=== PATIENT | female | born 1985 | race American Indian/Alaskan Native ===

== ENCOUNTER 2016-11-27 04:30 | Emergency (ER) | payer SELFPAY ==
[2016-11-27 06:09] VITALS: BP 142/95
--- NOTE | 2016-11-27 06:56 | XRay Report ---
FINAL REPORT PROCEDURE: XR KNEE 1-2V RT TECHNIQUE: RIGHT knee radiographs, AP and lateral views. CPT 90417 HISTORY: fall/injury R knee COMPARISON: No prior studies are available for comparison. FINDINGS: Fracture (s) and/or Dislocation(s): None . Alignment: Normal . Joint space(s): Normal . Soft tissues: Normal . Bone mineralization: Normal . Foreign bodies: None . IMPRESSION: Normal Examination.
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
[2016-11-27] MEDS ORDERED: MOTRIN PO ONE (07:35)
== END 2016-11-27 07:51 | disposition home or self-care (01) ==
LOC: ED 04:30
DX: S80.211A Abrasion, right knee, initial encounter (principal); J45.909 Unspecified asthma, uncomplicated; V49.59XA Passenger injured in collision with other motor vehicles in traffic accident, initial encounter; Y93.9 Activity, unspecified; Y92.89 Other specified places as the place of occurrence of the external cause; Y99.9 Unspecified external cause status
CPT/HCPCS: 99283

== ENCOUNTER 2017-04-22 11:00 | Outpatient (CLI) | payer MEDICAID | END 2017-04-22 11:01 | disposition home or self-care (01) | LOC: SLR 11:00 | PROVIDERS: ATTEND Family Medicine | DX: G47.30 Sleep apnea, unspecified (principal) | CPT/HCPCS: 95810 ==

== ENCOUNTER 2017-05-05 11:00 | Outpatient (CLI) | payer MEDICAID | END 2017-05-05 11:01 | disposition home or self-care (01) | LOC: SLR 11:00 | PROVIDERS: ATTEND Family Medicine | DX: G47.33 Obstructive sleep apnea (adult) (pediatric) (principal) | CPT/HCPCS: 95811 ==

== ENCOUNTER 2017-12-19 13:34 | Emergency (ER) | payer MEDICAID ==
[2017-12-19 14:11] LABS: Basophils % (Auto) 0.9 % (0.0-1.8); Eosinophils # (Auto) 0.1 K/mm3 (0.0-0.4); Eosinophils % (Auto) 1.2 % (0.0-4.3); Hematocrit 33.1 % (30.3-42.9); Hemoglobin 10.8 gm/dl (10.1-14.3); Lymphocytes # (Auto) 1.9 K/mm3 (1.2-5.4); Mean Corpuscular HGB Conc 33 % (30-34); Mean Corpuscular Volume 72 fl (79-97); Monocytes # (Auto) 0.3 K/mm3 (0.0-0.8); Monocytes % (Auto) 6.2 % (0.0-7.3); Platelet Count 280 K/mm3 (140-440); Red Blood Count 4.58 M/mm3 (3.65-5.03); Red Cell Distribution Width 18.6 % (13.2-15.2)
[2017-12-19 14:21] LABS: Mean Corpuscular Hemoglobin 24 pg (28-32)
--- NOTE | 2017-12-19 18:16 | Emergency Department Report ---
Blank Doc - Documentation Documentation: 32 year female with no significant past medical history came in complaining of vaginal bleeding for past 1 month on and off. Patient said this usually bleeds during her period but lately she has been bleeding more than her period. More than twice a month. Patient under no acute distress. She denies any nausea vomiting chest pain shortness of breath. Patient denies fever chills. She denies abdominal pain.
[2017-12-19 18:56] LABS: Alanine Aminotransferase 9 units/L (7-56); BUN/Creatinine Ratio 18; Blood Urea Nitrogen 9 mg/dL (7-17); Calcium 9.3 mg/dL (8.4-10.2); Hemolysis Index 3
--- NOTE | 2017-12-19 21:00 | Ultrasound Report ---
FINAL REPORT PROCEDURE: US TRANSVAGINAL TECHNIQUE: Real-time transvaginal sonography in multiple planes of the pelvis was performed with image documentation. This examination was performed without Doppler. Vascular abnormalities, including ovarian torsion, will not be detectable without Doppler evaluation. CPT 75638 HISTORY: bleed COMPARISON: No prior studies are available for comparison. FINDINGS: UTERUS Size: 10.5 x 4.7 x 5.1 cm. Endometrial thickness: mm. Orientation: anteverted. Cervix: Normal. Fibroids/masses: A 2 centimeter ill-defined isoechoic lesion is noted in the anterior upper body demonstrating hypervascularity.. RIGHT Ovary: 2.9 x 2.1 x 2.0 cm. Appearance: Normal. LEFT Ovary: 2.6 x 2.6 x 1.7 cm. Appearance: Normal. Pelvic fluid: None. Other: None. IMPRESSION: A small hypervascular mass measuring 2 centimeters in the anterior uterus most likely represents a fibroid. Otherwise unremarkable study.
--- NOTE | 2017-12-19 21:00 | Ultrasound Report ---
FINAL REPORT PROCEDURE: US PELVIC COMPLETE TECHNIQUE: Real-time transabdominal sonography in multiple planes of pelvis was performed with image documentation. This examination was performed without Doppler. Vascular abnormalities, including ovarian torsion, will not be detectable without Doppler evaluation. CPT 19941 HISTORY: vaginal bleeding COMPARISON: No prior studies are available for comparison. FINDINGS: UTERUS Size: 10.5 x 4.7 x 5.1 cm. Endometrial thickness: mm. Orientation: anteverted. Cervix: Normal. Fibroids/masses: A 2 centimeter ill-defined isoechoic lesion is noted in the anterior upper body demonstrating hypervascularity.. RIGHT Ovary: 2.9 x 2.1 x 2.0 cm. Appearance: Normal. LEFT Ovary: 2.6 x 2.6 x 1.7 cm. Appearance: Normal. Pelvic fluid: None. Other: None. IMPRESSION: A small hypervascular mass measuring 2 centimeters in the anterior uterus most likely represents a fibroid. Otherwise unremarkable study.
[2017-12-19 21:18] LABS: Bilirubin,Urine NEG (Negative); Blood,Urine LG (Negative); Color,Urine Red (Yellow); Mucus,Urine FEW /HPF
[2017-12-19 21:21] LABS: RBC,Urine > 182.0 /HPF (0.0-6.0)
[2017-12-19 21:22] LABS: HCG Qualitative,Urine Negative (Negative)
--- NOTE | 2017-12-19 21:56 | Emergency Department Report ---
ED Female HPI - General Chief complaint: Vaginal Bleeding Stated complaint: VAGINAL BLEEDING Time Seen by Provider: 12/19/17 18:08 Source: patient Mode of arrival: Ambulatory Limitations: No Limitations - History of Present Illness Initial comments: Pt screen by Dr. Lopez and orders place. 32 year female with no significant past medical history came in complaining of vaginal bleeding for past 1 month on and off. Patient said this usually bleeds during her period but lately she has been bleeding more than her period. More than twice a month. She reports cramping in her lower abdomen at 6/10, crampy pain. Intermittent and only occurs or bleeding. She is currently bleeding at present. Denies any history of known fibroids or ovarian disease. Denies taking control. Last menstrual period is 12/01/2017 and she says she started again. She denies any nausea vomiting chest pain shortness of breath. Patient denies fever chills. No alleviating or exacerbating factor per patient and no medication taken prior to coming to the emergency room. Patient does have a primary care doctor but she does not have [employer] at present. Patient was last seen in this emergency room on 11/27/2016 for knee pain. Denies any urinary burning, frequency or urgency. Denies any back pain. Denies any vaginal discharge. MD Complaint: vaginal bleeding Onset/Timin -: days(s) Location: suprapubic Radiation: non-radiating Severity: moderate Severity scale (0 -10): 6 Quality: cramping Consistency: intermittent Improves with: none Worsens with: none Are you Now?: No Last Menstrual Period: 12/16/17 (started) EDC: 09/22/18 Associated Symptoms: vaginal bleeding, abdominal pain. denies: vaginal discharge, nausea/vomiting, fever/chills, headaches, loss of appetite, dysuria, hematuria, rash, seizure, shortness of breath, syncope, weakness - Related Data Sexually active: Yes Previous Rx's Medication Instructions Recorded Last Taken Type Ibuprofen [Motrin] 800 mg PO Q8HR PRN #30 tablet 11/27/16 Unknown Rx Cephalexin [Keflex] 500 mg PO Q12HR 7 Days #14 cap 12/19/17 Unknown Rx Naproxen [Naprosyn TAB] 500 mg PO Q8H PRN #15 tablet 12/19/17 Unknown Rx Allergies Allergy/AdvReac Type Severity Reaction Status Date / Time No Known Allergies Allergy Verified 12/19/17 13:40 ED Review of Systems ROS: Stated complaint: VAGINAL BLEEDING Other details as noted in HPI Constitutional: denies: chills, fever Eyes: denies: eye pain, eye discharge, vision change ENT: denies: ear pain, throat pain Respiratory: denies: cough, shortness of breath, SOB with exertion, SOB at rest , stridor, wheezing Cardiovascular: denies: chest pain, palpitations, edema, syncope Gastrointestinal: abdominal pain. denies: nausea, vomiting, diarrhea, constipation, hematemesis, melena, hematochezia Genitourinary: abnormal menses. denies: urgency, dysuria, frequency, hematuria , discharge, dyspareunia Musculoskeletal: denies: back pain, joint swelling, arthralgia, myalgia Skin: denies: rash, lesions, pruritus Neurological: denies: headache, weakness, abnormal gait Hematological/Lymphatic: denies: easy bleeding, easy bruising ED Past Medical Hx - Past Medical History Previous Medical History?: Yes Hx Asthma: Yes Additional medical history: OBESITY, Right Knee Pain - Surgical History Past Surgical History?: Yes Additional Surgical History: C-sections X 6, Tubal Ligation - Family History Family history: hypertension - Social History Smoking Status: Never Smoker Substance Use Type: None Other Social History: Lives with her family - Medications Home Medications: Home Medications Medication Instructions Recorded Confirmed Last Taken Type Ibuprofen [Motrin] 800 mg PO Q8HR PRN #30 tablet 11/27/16 Unknown Rx Cephalexin [Keflex] 500 mg PO Q12HR 7 Days #14 cap 12/19/17 Unknown Rx Naproxen [Naprosyn TAB] 500 mg PO Q8H PRN #15 tablet 12/19/17 Unknown Rx ED Physical Exam - General Limitations: No Limitations General appearance: alert, in no apparent distress - Head Head exam: Present: atraumatic, normocephalic, normal inspection - Eye Eye exam: Present: normal appearance, PERRL, EOMI. Absent: scleral icterus, conjunctival injection Pupils: Present: normal accommodation - ENT ENT exam: Present: normal exam, normal orophraynx, mucous membranes moist - Neck Neck exam: Present: normal inspection, full ROM. Absent: tenderness, lymphadenopathy - Respiratory Respiratory exam: Present: normal lung sounds bilaterally. Absent: respiratory distress, chest wall tenderness - Cardiovascular Cardiovascular Exam: Present: regular rate, normal rhythm, normal heart sounds. Absent: systolic murmur, diastolic murmur - GI/Abdominal GI/Abdominal exam: Present: soft, tenderness (pelvic area, mid), normal bowel sounds. Absent: distended, guarding, rebound, rigid, organomegaly, mass, bruit , pulsatile mass, hernia - Extremities Exam Extremities exam: Present: normal inspection, full ROM, normal capillary refill , other (in, cyanosis or edema. Positive pulses all extremities and no neurovascular compromise). Absent: tenderness, pedal edema, joint swelling, calf tenderness - Back Exam Back exam: Present: normal inspection, full ROM, other (ambulates without any difficulties). Absent: tenderness, CVA tenderness (R), CVA tenderness (L), muscle spasm, paraspinal tenderness, vertebral tenderness, rash noted - Neurological Exam Neurological exam: Present: alert, oriented X3, normal gait - Psychiatric Psychiatric exam: Present: normal affect, normal mood - Skin Skin exam: Present: warm, dry, intact, normal color. Absent: rash ED Course Vital Signs 12/19/17 12/19/17 13:40 23:55 Temperature 98.5 F 98.5 F Pulse Rate 89 78 Respiratory 18 17 Rate Blood Pressure 149/80 Blood Pressure 152/91 [Right] O2 Sat by Pulse 96 100 Oximetry - Reevaluation(s) Reevaluation #1: 12/19/17 23:40 Patient given naproxen 500 mg by mouth in emergency room for pain with relief of pain ED Medical Decision Making - Lab Data Result diagrams: 12/19/17 14:01 12/19/17 18:13 Lab Results 12/19/17 12/19/17 12/19/17 Range/Units 14:01 14:01 14:01 WBC 4.6 (4.5-11.0) K/mm3 RBC 4.58 (3.65-5.03) M/mm3 Hgb 10.8 (10.1-14.3) gm/dl Hct 33.1 (30.3-42.9) % MCV 72 L (79-97) fl MCH 24 L (28-32) pg MCHC 33 (30-34) % RDW 18.6 H (13.2-15.2) % Plt Count 280 (140-440) K/mm3 Lymph % (Auto) 41.0 H (13.4-35.0) % [place] % (Auto) 6.2 (0.0-7.3) % Eos % (Auto) 1.2 (0.0-4.3) % Baso % (Auto) 0.9 (0.0-1.8) % Lymph # 1.9 (1.2-5.4) K/mm3 [place] # 0.3 (0.0-0.8) K/mm3 Eos # 0.1 (0.0-0.4) K/mm3 Baso # 0.0 (0.0-0.1) K/mm3 Seg Neutrophils % 50.7 (40.0-70.0) % Seg Neutrophils # 2.3 (1.8-7.7) K/mm3 Sodium (137-145) mmol/L Potassium (3.6-5.0) mmol/L Chloride (98-107) mmol/L Carbon Dioxide (22-30) mmol/L Anion Gap mmol/L BUN (7-17) mg/dL Creatinine (0.7-1.2) mg/dL Estimated GFR ml/min BUN/Creatinine Ratio % Glucose (65-100) mg/dL Calcium (8.4-10.2) mg/dL Total Bilirubin (0.1-1.2) mg/dL AST (5-40) units/L ALT (7-56) units/L Alkaline Phosphatase (35-129) units/L Total Protein (6.3-8.2) g/dL Albumin (3.9-5) g/dL Albumin/Globulin Ratio % HCG, Quant < 2 (0-4) mIU/mL Urine Color (Yellow) Urine Turbidity (Clear) Urine pH (5.0-7.0) Ur Specific [place] (1.003-1.030) Urine Protein (Negative) mg/dL Urine Glucose (UA) (Negative) mg/dL Urine Ketones (Negative) mg/dL Urine Blood (Negative) Urine Nitrite (Negative) Urine Bilirubin (Negative) Urine Urobilinogen (<2.0) mg/dL Ur Leukocyte Esterase (Negative) Urine WBC (Auto) (0.0-6.0) /HPF Urine RBC (Auto) (0.0-6.0) /HPF Urine Mucus /HPF Urine HCG, Qual (Negative) Blood Type A POSITIVE Antibody Screen Negative 12/19/17 12/19/17 Range/Units 18:13 Unknown WBC (4.5-11.0) K/mm3 RBC (3.65-5.03) M/mm3 Hgb (10.1-14.3) gm/dl Hct (30.3-42.9) % MCV (79-97) fl MCH (28-32) pg MCHC (30-34) % RDW (13.2-15.2) % Plt Count (140-440) K/mm3 Lymph % (Auto) (13.4-35.0) % [place] % (Auto) (0.0-7.3) % Eos % (Auto) (0.0-4.3) % Baso % (Auto) (0.0-1.8) % Lymph # (1.2-5.4) K/mm3 [place] # (0.0-0.8) K/mm3 Eos # (0.0-0.4) K/mm3 Baso # (0.0-0.1) K/mm3 Seg Neutrophils % (40.0-70.0) % Seg Neutrophils # (1.8-7.7) K/mm3 Sodium 138 (137-145) mmol/L Potassium 4.3 (3.6-5.0) mmol/L Chloride 100.6 (98-107) mmol/L Carbon Dioxide 20 L (22-30) mmol/L Anion Gap 22 mmol/L BUN 9 (7-17) mg/dL Creatinine 0.5 L (0.7-1.2) mg/dL Estimated GFR > 60 ml/min BUN/Creatinine Ratio 18 % Glucose 90 (65-100) mg/dL Calcium 9.3 (8.4-10.2) mg/dL Total Bilirubin 0.60 (0.1-1.2) mg/dL AST 14 (5-40) units/L ALT 9 (7-56) units/L Alkaline Phosphatase 78 (35-129) units/L Total Protein 7.5 (6.3-8.2) g/dL Albumin 4.0 (3.9-5) g/dL Albumin/Globulin Ratio 1.1 % HCG, Quant (0-4) mIU/mL Urine Color Red (Yellow) Urine Turbidity Cloudy (Clear) Urine pH 5.0 (5.0-7.0) Ur Specific [place] 1.029 (1.003-1.030) Urine Protein 100 mg/dl (Negative) mg/dL Urine Glucose (UA) Neg (Negative) mg/dL Urine Ketones Neg (Negative) mg/dL Urine Blood Lg (Negative) Urine Nitrite Neg (Negative) Urine Bilirubin Neg (Negative) Urine Urobilinogen 2.0 (<2.0) mg/dL Ur Leukocyte Esterase Tr (Negative) Urine WBC (Auto) 133.0 H (0.0-6.0) /HPF Urine RBC (Auto) > 182.0 (0.0-6.0) /HPF Urine Mucus Few /HPF Urine HCG, Qual Negative (Negative) Blood Type Antibody Screen Urine culture sent large amount of bleeding due to current vaginal bleeding. She is experiencing her menses for the second time this month. - Radiology Data Radiology results: report reviewed Transvaginal and transabdominal ultrasound reveals patient's with small hypervascular mass measuring 2 cm in the anterior uterus most likely represent a fibroid. Otherwise unremarkable ultrasound. Right and left ovary are normal. No pelvic fluid. Cervix is normal. Please refer to radiology report section for details on reports - Medical Decision Making ED course: Diagnosis 1: Abdominal pain-resolved. Given naproxen 500 mg in ED. Will be discharged home on anti-inflammatory 2-Dysfunctional uterine bleed: Referred to OBGYN. CBC stable 3: Urinary tract infection: UA with leukocyte Estrace, WBC. will be discharged home on Keflex. Urine culture collected and Pending results 4: Uterine Mass/Fibroids -referred to OBGYN. Pain management Transvaginal and transabdominal ultrasound reveals patient's with small hypervascular mass measuring 2 cm in the anterior uterus most likely represent a fibroid. Otherwise unremarkable ultrasound. Right and left ovary are normal. No pelvic fluid. Cervix is normal. Please refer to radiology report section for details on reports Labs reviewed to include cbc, cmp, HCG Quant, UA and HCG T&S- stable x uti. Educated on labs results, Ultrasound report, Diagnosis, Meds and follow up and she voiced understanding Vital signs are stable and she is afebrile prior to discharge. Multiple follow-up given for primary care, and [employer] doctor Mikey Lopes. Patient discharged home in stable condition from emergency room with prescription for Keflex and naproxen. - Differential Diagnosis dysfunctional uterine bleeding, threatened miscarriage, fibroids Critical care attestation.: If time is entered above; I have spent that time in minutes in the direct care of this critically ill patient, excluding procedure time. ED Disposition Clinical Impression: Uterine mass, Dysfunctional uterine bleeding, Vaginal bleeding Abdominal pain Qualifiers: Abdominal location: lower abdomen, unspecified Qualified Code(s): R10.30 - Lower abdominal pain, unspecified UTI (urinary tract infection) Qualifiers: Urinary tract infection type: site unspecified Hematuria presence: with hematuria Qualified Code(s): N39.0 - Urinary tract infection, site not specified Disposition: TO HOME OR SELFCARE Is pt being admited?: No Does the pt Need Aspirin: No Condition: Stable Instructions: Dysfunctional Uterine Bleeding (ED), Uterine Fibroids (ED), Urinary Tract Infection in Women (ED), Abdominal Pain (ED) Additional Instructions: Please follow up with Dr. Osmar Mcdonough at [facility]. Call and to schedule an appointment regarding ultrasound findings for uterine mass that is more than likely a fibroid. Take naproxen and this will help with pain. He have a urinary tract infection and please take Keflex which is an antibiotic. Increase your fluid intake and eat food that is Rich and iron. Prescriptions: Cephalexin [Keflex] 500 mg PO Q12HR 7 Days #14 cap Naproxen [Naprosyn TAB] 500 mg PO Q8H PRN #15 tablet PRN Reason: abdominal cramping Referrals: RAMON RODRIGUEZ MD [Primary Care Provider] - 12/22/17 KARLEY MCDONOUGH MD [Staff Physician] - 12/22/17 Forms: Work/School Release Form(ED)
[2017-12-19] MEDS ORDERED: NAPROSYN PO ONE (23:40)
[2017-12-20 00:08] VITALS: BP 152/91
== END 2017-12-19 23:55 | disposition home or self-care (01) ==
LOC: ED 13:34
DX: N85.9 Noninflammatory disorder of uterus, unspecified (principal); N93.8 Other specified abnormal uterine and vaginal bleeding; R10.30 Lower abdominal pain, unspecified; N39.0 Urinary tract infection, site not specified; D25.9 Leiomyoma of uterus, unspecified; E66.9 Obesity, unspecified; Z98.51 Tubal ligation status
CPT/HCPCS: 36415; 76830; 76856; 80053; 81001; 81025; 84702; 85025; 86850; 86900; 86901; 87086

== ENCOUNTER 2019-02-21 11:14 | Emergency (ER) | payer MEDICAID ==
--- NOTE | 2019-02-21 11:28 | Emergency Department Report ---
Blank Doc - Documentation Documentation: This is a 33-year-old female that presents with chest pain, SOB, and heart pal pation feeling. Stated has some blurry vision. This initial assessment/diagnostic orders/clinical plan/treatment(s) is/are subject to change based on patient's health status, clinical progression and re- assessment by fellow clinical providers in the ED. Further treatment and workup at subsequent clinical providers discretion. Patient/guardians urged not to elope from the ED as their condition may be serious if not clinically assessed and managed. Initial orders include: 1- Patient sent to [facility] for further evaluation and treatment 2- EKG 3- CXR 4- labs
[2019-02-21 11:29] VITALS: BP 144/93
[2019-02-21 12:16] LABS: Basophils % (Auto) 0.6 % (0.0-1.8); Eosinophils % (Auto) 0.7 % (0.0-4.3); Hemoglobin 12.2 gm/dl (10.1-14.3); Lymphocytes # (Auto) 1.3 K/mm3 (1.2-5.4); Lymphocytes % (Auto) 43.5 % (13.4-35.0); Mean Corpuscular HGB Conc 32 % (30-34); Mean Corpuscular Volume 83 fl (79-97); Monocytes # (Auto) 0.2 K/mm3 (0.0-0.8); Monocytes % (Auto) 7.3 % (0.0-7.3); Platelet Count 217 K/mm3 (140-440); Red Blood Count 4.61 M/mm3 (3.65-5.03); Red Cell Distribution Width 17.6 % (13.2-15.2)
[2019-02-21] MEDS ORDERED: ULTRAM PO ONE (12:24)
[2019-02-21 12:25] LABS: INR 1.21 (0.87-1.13); Partial Thromboplastin Time 28.9 Sec. (24.2-36.6)
--- NOTE | 2019-02-21 12:31 | Emergency Department Report ---
ED General Adult HPI - General Chief complaint: Chest Pain Stated complaint: BODY PAIN/BLUR VISION Time Seen by Provider: 02/21/19 11:26 Source: patient Mode of arrival: Ambulatory Limitations: No Limitations - History of Present Illness Initial comments: Ms. Herrera is a very pleasant 33-year-old female with history of hypertension depression anxiety severe obesity right knee pain sleep apnea. Her PCP is Dr. Dee Tuttle For the past hour she's had facial headache lightheadedness and nasal congestion. She has palpitations. No changes in her blood pressure medications. She does take a water pill. Denies fever. -: Gradual, hour(s) (1) Location: head, chest Quality: dull Consistency: constant Improves with: none Worsens with: none Associated Symptoms: other (palpitations and lightheadedness) - Related Data Previous Rx's Medication Instructions Recorded Last Taken Type Fluticasone [Flonase] 1 spray NS QDAY 14 Days #1 bottle 02/21/19 Unknown Rx Loratadine 10 mg PO DAILY 14 Days #14 tablet 02/21/19 Unknown Rx Allergies Allergy/AdvReac Type Severity Reaction Status Date / Time amoxicillin Allergy Swelling Verified 02/21/19 11:17 ED Review of Systems ROS: Stated complaint: BODY PAIN/BLUR VISION Other details as noted in HPI Comment: All other systems reviewed and negative Constitutional: malaise ENT: congestion Cardiovascular: palpitations. denies: chest pain ED Past Medical Hx - Past Medical History Hx Hypertension: Yes (anxiety, depression) Hx Asthma: Yes Additional medical history: OBESITY, Right Knee Pain, Sleep apnea, obese - Surgical History Additional Surgical History: C-sections X 6, Tubal Ligation, anemia - Social History Smoking Status: Never Smoker Substance Use Type: None - Medications Home Medications: Home Medications Medication Instructions Recorded Confirmed Last Taken Type Fluticasone [Flonase] 1 spray NS QDAY 14 Days #1 bottle 02/21/19 Unknown Rx Loratadine 10 mg PO DAILY 14 Days #14 tablet 02/21/19 Unknown Rx ED Physical Exam - General Limitations: No Limitations General appearance: alert, in no apparent distress - Head Head exam: Present: atraumatic, normocephalic - Eye Eye exam: Present: normal appearance - ENT ENT exam: Present: mucous membranes moist - Neck Neck exam: Present: normal inspection, full ROM - Respiratory Respiratory exam: Present: normal lung sounds bilaterally. Absent: respiratory distress, wheezes, rales, rhonchi - Cardiovascular Cardiovascular Exam: Present: regular rate, normal rhythm, normal heart sounds. Absent: systolic murmur, diastolic murmur, rubs, gallop - GI/Abdominal GI/Abdominal exam: Present: soft, normal bowel sounds. Absent: distended, tenderness, guarding, rebound - Extremities Exam Extremities exam: Present: normal inspection - Back Exam Back exam: Present: normal inspection - Neurological Exam Neurological exam: Present: alert, oriented X3 - Psychiatric Psychiatric exam: Present: normal affect, normal mood - Skin Skin exam: Present: warm, dry, intact, normal color. Absent: rash ED Course Vital Signs 02/21/19 11:23 Temperature 98.4 F Pulse Rate 87 Respiratory 20 Rate Blood Pressure 144/93 O2 Sat by Pulse 97 Oximetry ED Medical Decision Making - Lab Data Result diagrams: 02/21/19 11:49 02/21/19 11:49 - EKG Data 02/21/19 12:21 EKG obtained 1123 Normal sinus rhythm rate 80 beats minute normal axis normal intervals no significant ST elevation nonspecific T wave pattern anterior leads. - Radiology Data Radiology results: report reviewed Chest x-ray according to radiology report showed mild cardiomegaly and signs of pulmonary venous hypertension - Medical Decision Making 1. Sinus headache: Recommended Flonase and loratadine which I prescribed 2. Palpitations no evidence of arrhythmia. Possible PVCs.. 3. After attempting to treat the patient's discomfort with analgesia in the ED, patient politely declined the medication. She told the nurse that she is experiencing anxiety. She was recently diagnosed with anxiety. Her PCP has called in prescription to address the anxiety. The medication is currently waiting for her at the pharmacy. 4. Ms. Herrera speaks of dyspnea at rest. I do not suspect PE clinically during this presentation. Normal heart rate. No respiratory rate. Upon review of chest x-ray she does have cardiomegaly and pulmonary venous congestion due to severe obesity and sleep apnea she is at risk for cor pulmonale I strongly suggested evaluation by her PCP. I referred her to shoe stitcher on-call. She stated that her sleep apnea is severe however she has not been approved to have CPAP machine after her second sleep study. Critical care attestation.: If time is entered above; I have spent that time in minutes in the direct care of this critically ill patient, excluding procedure time. ED Disposition Clinical Impression: Sinus headache, Palpitations, Anxiety Disposition: DC-01 TO HOME OR SELFCARE Is pt being admited?: No Does the pt Need Aspirin: No Condition: Stable Instructions: Palpitations (ED), Acute Headache (ED) Prescriptions: Fluticasone [Flonase] 1 spray NS QDAY 14 Days #1 bottle Loratadine 10 mg PO DAILY 14 Days #14 tablet
[2019-02-21 12:40] LABS: BUN/Creatinine Ratio 14; Blood Urea Nitrogen 7 mg/dL (7-17); Calcium 9.4 mg/dL (8.4-10.2); Hemolysis Index 6
--- NOTE | 2019-02-21 13:18 | XRay Report ---
CHEST 2 VIEWS INDICATION: palpitations. COMPARISON: None. FINDINGS: Support devices: None. Heart: Mildly enlarged. Pulmonary vasculature: Redistribution of blood flow to the upper lobes. Lungs/pleura: No acute air space or interstitial disease. No pneumothorax. Additional findings: None. IMPRESSION: Mild cardiomegaly and pulmonary venous hypertension. No pulmonary edema. Signer Name: Beau Barrios MD Signed: 02/21/2019 1:14 PM Workstation Name: [id number]
== END 2019-02-21 13:55 | disposition home or self-care (01) ==
LOC: ED 11:14
DX: R51 Headache (principal); F41.9 Anxiety disorder, unspecified; F32.9 Major depressive disorder, single episode, unspecified; I10 Essential (primary) hypertension; J45.909 Unspecified asthma, uncomplicated; Z98.51 Tubal ligation status; Z98.890 Other specified postprocedural states; Z79.899 Other long term (current) drug therapy; Z88.1 Allergy status to other antibiotic agents
CPT/HCPCS: 36415; 71046; 80048; 84484; 84703; 85025; 85610; 85730; 93005; 93010; 99284

== ENCOUNTER 2019-03-11 13:49 | Emergency (ER) | payer MEDICAID ==
--- NOTE | 2019-03-11 14:13 | Event Note ---
ED Screening Note ED Screening Note: co pain at back of head and swelling of ble and cp that comes and goes no trauma pos nausea no sob 12 lead no focal def pmh htn anxiety psh csec x 6 february 19 LMP rx ativan clonidine pcp Dee Conklin no c/e/drugs nothing taken at home mom dec chf/hd/ dm This initial assessment/diagnostic orders/clinical plan/treatment(s) is/are subject to change based on patients health status, clinical progression and re- assessment by fellow clinical providers in the ED. Further treatment and workup at subsequent clinical providers discretion. Patient/guardian urged not to elope from the ED as their condition may be serious if not clinically assessed and managed. Initial orders include: basic labs 12 lead ua
[2019-03-11 14:59] LABS: Hematocrit 37.2 % (30.3-42.9); Hemoglobin 12.4 gm/dl (10.1-14.3); Mean Corpuscular HGB Conc 33 % (30-34); Mean Corpuscular Volume 82 fl (79-97); Platelet Count 247 K/mm3 (140-440); Red Blood Count 4.56 M/mm3 (3.65-5.03); Red Cell Distribution Width 18.2 % (13.2-15.2)
[2019-03-11 16:04] LABS: BUN/Creatinine Ratio 14; Blood Urea Nitrogen 7 mg/dL (7-17)
[2019-03-11 16:05] LABS: Calcium 9.4 mg/dL (8.4-10.2); Hemolysis Index 12
[2019-03-11] MEDS ORDERED: NORCO 5/325 PO ONE (16:24)
--- NOTE | 2019-03-11 16:45 | Emergency Department Report ---
HPI - General Chief Complaint: Chest Pain Time Seen by Provider: 03/11/19 14:08 - HPI HPI: 33-year-old female presents to the emergency department with the complaint of a headache to the top of the head as well as the neck and upper back that has been going on for the past couple of days. She denies any vision changes, slurred speech or any neurological deficits. She has not taken anything for her symptoms prior to arrival today. The patient also complains of some recent left-sided chest pain. However this is an acute on chronic problem for her. She was here for the same complaint 2 weeks ago at this facility. The patient also said that she had a negative stress test done last month through her visitor services specialist, was name she cannot currently remember but says it is unpleasant drive. She denies any shortness of breath, fever, nausea, vomiting or diaphoresis. She denies any tobacco or illicit drug use. She has a past history of hypertension, anemia, asthma, anxiety and sleep apnea. No recent travel or sick contacts at home. ED Past Medical Hx - Past Medical History Hx Hypertension: Yes (anxiety, depression) Hx Asthma: Yes Additional medical history: OBESITY, Right Knee Pain, Sleep apnea, obese - Surgical History Additional Surgical History: C-sections X 6, Tubal Ligation, anemia - Social History Smoking Status: Never Smoker Substance Use Type: None - Medications Home Medications: Home Medications Medication Instructions Recorded Confirmed Last Taken Type Fluticasone [Flonase] 1 spray NS QDAY 14 Days #1 bottle 02/21/19 Unknown Rx Ibuprofen [Motrin] 800 mg PO Q8HR PRN #30 tablet 02/21/19 Unknown Rx Loratadine 10 mg PO DAILY 14 Days #14 tablet 02/21/19 Unknown Rx ED Review of Systems ROS: Stated complaint: HEADACHE/RT/LFT FOOT SWELLING Other details as noted in HPI Comment: All other systems reviewed and negative Constitutional: denies: chills, fever Eyes: denies: eye pain, vision change ENT: denies: ear pain, throat pain Respiratory: denies: cough, shortness of breath Cardiovascular: chest pain. denies: palpitations Gastrointestinal: denies: nausea, vomiting Genitourinary: denies: dysuria, discharge Musculoskeletal: back pain, myalgia. denies: joint swelling Skin: denies: rash, lesions Neurological: headache. denies: numbness, paresthesias Physical Exam - Physical Exam Vital Signs: Vital Signs 03/11/19 14:06 Temperature 98.5 F Pulse Rate 85 Respiratory 18 Rate Blood Pressure 131/77 [Right] O2 Sat by Pulse 100 Oximetry Physical Exam: GENERAL: The patient is well-developed well-nourished. HENT: Normocephalic. Atraumatic. Patient has moist mucous membranes. EYES: Extraocular motions are intact. Pupils equal reactive to light bilaterally. No nystagmus. NECK: Supple. Trachea is midline. CHEST/LUNGS: Clear to auscultation. There is no respiratory distress noted. HEART/CARDIOVASCULAR: Regular. There is no tachycardia. There is no murmur. ABDOMEN: Abdomen is soft, nontender. Patient has normal bowel sounds. There is no abdominal distention. SKIN: Skin is warm and dry. NEURO: The patient is awake, alert, and oriented. The patient is cooperative. The patient has no focal neurologic deficits. The patient has normal speech. Cranial nerves II through XII grossly intact. No pronator drift. MUSCULOSKELETAL: There is no tenderness or deformity. There is no limitation range of motion. There is no evidence of acute injury. ED Course Vital Signs 03/11/19 14:06 Temperature 98.5 F Pulse Rate 85 Respiratory 18 Rate Blood Pressure 131/77 [Right] O2 Sat by Pulse 100 Oximetry ED Medical Decision Making - Lab Data Result diagrams: 03/11/19 14:35 03/11/19 14:35 - EKG Data -: EKG Interpreted by Me EKG shows normal: sinus rhythm, axis, intervals, QRS complexes, ST-T waves Rate: normal - EKG Data When compared to previous EKG there are: no significant change Interpretation: normal EKG, unchanged when compared t (02/21/19) - Radiology Data Radiology results: report reviewed, image reviewed interpreted by me: Chest x-ray does not show any acute process. There are no pleural effusions, obvious pneumonia and there is no pneumothorax. CT head/brain wo con INDICATION / CLINICAL INFORMATION: 33 years Female; Headache. TECHNIQUE: Routine CT head without contrast. All CT scans at this location are performed using CT dose reduction for ALARA by means of automated exposure control. COMPARISON: None. FINDINGS: BRAIN / INTRACRANIAL CONTENTS: No acute hemorrhage, mass effect, midline shift, hydrocephalus, or acute, large territorial infarct. No chronic infarct or focal atrophy. Normal brain volume and ventricular/sulcal size for age. No significant white matter abnormality. CRANIOCERVICAL JUNCTION: No significant abnormality. ORBITS: No significant abnormality of visualized orbits. SINUSES / MASTOIDS: No significant abnormality of the visualized paranasal sinuses or mastoid air cells. ADDITIONAL FINDINGS: Prominent soft tissues seen in the roof the nasopharynx, presumably representing reactive adenoidal tissue IMPRESSION: 1. No focal mass, hemorrhage, hydrocephalus, or acute, large territorial infarct. - Medical Decision Making This patient presents to the emergency department with complaint of a headache that she also feels down towards the neck and shoulder/upper back. She does not appear to have any focal, motor or sensory deficits in her cranial nerves are intact. She does have some taut musculature around the neck and trapezius muscle and her headache may be secondary to a tension headache. She had a CT scan of the head without contrast that did not show any bleed, shift, mass, ischemia, or any other acute process. The patient did not complain of any chest pain to me but did say something in triage. It sounds like this is a inter mittent or acute on chronic issue for her as she was seen for the chest pain 2 weeks ago here at this facility and also says that she had a negative stress test through her visitor services specialist about one month ago. Her EKG does not show any signs of ST elevation [place] or dysrhythmia and is unchanged from previous. Her labs have been unremarkable including negative troponin and low BNP level. She is low on the heart score criteria. She is low on the well's score and is PERC negative. The patient was given a dose of pain medication and upon reevaluation she is feeling improved. She has good follow-up with primary care and cardiology. She appears safe for discharge home at this time. Vital signs s table throughout her ED course. She will return to the ER with any worsening of her symptoms or any acute distress. - Differential Diagnosis tension headache, migraine, subarachnoid, [place], costochondritis Critical Care Time: No Critical care attestation.: If time is entered above; I have spent that time in minutes in the direct care of this critically ill patient, excluding procedure time. ED Disposition Clinical Impression: Intermittent chest pain Headache Qualifiers: Headache type: tension-type Headache chronicity pattern: unspecified pattern Intractability: not intractable Qualified Code(s): G44.209 - Tension-type headache, unspecified, not intractable Disposition: DC-01 TO HOME OR SELFCARE Is pt being admited?: No Condition: Stable Instructions: Chest Pain (ED) Additional Instructions: Please follow-up with your primary care physician in the next few days. Please follow-up with your visitor services specialist. Return to the emergency Department with any worsening of your symptoms or any acute distress. Referrals: Guidance Secretary, Your [Other] - 2-3 Days AMY NAJERA MD [Staff Physician] - 2-3 Days Heart Score - HEART Score History: Slightly suspicious EKG: Normal Age: < 45 Risk factors: 1-2 risk factors Troponin: < normal limit HEART Score: 1 - Critical Actions Critical Actions: 0-3 pts:0.9-1.7%risk of adverse cardiac event.Candidate for discharge
[2019-03-11 17:32] LABS: Bacteria,Urine 1+ /HPF (Negative); Bilirubin,Urine NEG (Negative); Blood,Urine NEG (Negative); Color,Urine Yellow (Yellow); Mucus,Urine 2+ /HPF; Protein,Urine <15 mg/dL mg/dL (Negative)
[2019-03-11 17:34] LABS: HCG Qualitative,Urine Negative (Negative)
--- NOTE | 2019-03-11 18:28 | Cat Scan Report ---
CT head/brain wo con INDICATION / CLINICAL INFORMATION: 33 years Female; Headache. TECHNIQUE: Routine CT head without contrast. All CT scans at this location are performed using CT dos e reduction for ALARA by means of automated exposure control. COMPARISON: None. FINDINGS: BRAIN / INTRACRANIAL CONTENTS: No acute hemorrhage, mass effect, midline shift, hydrocephalus, or acu te, large territorial infarct. No chronic infarct or focal atrophy. Normal brain volume and ventricul ar/sulcal size for age. No significant white matter abnormality. CRANIOCERVICAL JUNCTION: No significant abnormality. ORBITS: No significant abnormality of visualized orbits. SINUSES / MASTOIDS: No significant abnormality of the visualized paranasal sinuses or mastoid air melina ls. ADDITIONAL FINDINGS: Prominent soft tissues seen in the roof the nasopharynx, presumably representing reactive adenoidal tissue IMPRESSION: 1. No focal mass, hemorrhage, hydrocephalus, or acute, large territorial infarct. Signer Name: Reno Chan MD, III Signed: 03/11/2019 6:24 PM Workstation Name: [id number]
--- NOTE | 2019-03-11 18:45 | XRay Report ---
CHEST 2 VIEWS INDICATION / CLINICAL INFORMATION: Chest pain.. COMPARISON: 02/21/2019. FINDINGS: SUPPORT DEVICES: None. HEART / MEDIASTINUM: There is mild cardiomegaly. Pulmonary vasculature is normal. The aorta is normal in caliber. LUNGS / PLEURA: No significant pulmonary or pleural abnormality. No pneumothorax. ADDITIONAL FINDINGS: No significant additional findings. IMPRESSION: Mild cardiomegaly without acute abnormality or other change since 02/21/2019. Signer Name: Eduar Blackburn MD Signed: 03/11/2019 6:40 PM Workstation Name: [id number]
[2019-03-11] MEDS ORDERED: TORADOL IM ONE (18:47)
[2019-03-11 19:50] VITALS: BP 140/65
== END 2019-03-11 20:30 | disposition home or self-care (01) ==
LOC: ED 13:49
DX: R51 Headache (principal); R07.89 Other chest pain; M54.89 Other dorsalgia; M54.2 Cervicalgia; I10 Essential (primary) hypertension; F41.9 Anxiety disorder, unspecified; Z86.2 Personal history of diseases of the blood and blood-forming organs and certain disorders involving the immune mechanism; Z79.899 Other long term (current) drug therapy; Z88.1 Allergy status to other antibiotic agents
CPT/HCPCS: 36415; 70450; 71046; 80048; 81001; 81025; 83880; 84484; 84703; 85027; 93005; 93010; 96372; 99284; J1885

== ENCOUNTER 2019-05-11 19:42 | Emergency (ER) | payer MEDICAID ==
--- NOTE | 2019-05-11 19:56 | Emergency Department Report ---
Blank Doc - Documentation Documentation: 33-year-old female that presents with SOB and nasal congestion. Denies any ch est pain. This initial assessment/diagnostic orders/clinical plan/treatment(s) is/are subject to change based on patient's health status, clinical progression and re- assessment by fellow clinical providers in the ED. Further treatment and workup at subsequent clinical providers discretion. Patient/guardians urged not to elope from the ED as their condition may be serious if not clinically assessed and managed. Initial orders include: 1- Patient sent to [facility] for further evaluation and treatment 2- CXR
--- NOTE | 2019-05-11 20:52 | XRay Report ---
CHEST PA AND LATERAL VIEWS INDICATION: sob. COMPARISON: 03/11/2019. FINDINGS: Support devices: None. Heart: Within normal limits. Lungs/Pleura: No acute pulmonary or pleural findings. IMPRESSION: 1. No significant abnormality. Signer Name: Yves Woodard MD Signed: 05/11/2019 8:48 PM Workstation Name: [id number]
[2019-05-11] MEDS ORDERED: IBUPROFEN PO ONE (22:47)
[2019-05-11] MEDS ORDERED: PEPCID PO ONE (22:47)
--- NOTE | 2019-05-11 22:48 | Emergency Department Report ---
ED General Adult HPI - General Chief complaint: Dyspnea/Respdistress Stated complaint: MARGARITA Time Seen by Provider: 05/11/19 19:54 Source: patient, RN notes reviewed Mode of arrival: Ambulatory Limitations: No Limitations - History of Present Illness Initial comments: During the history and physical, I am chaperoned by nurse JEANCARLOS LUCAS This is a 33-year-old female. Patient is not known to this provider previously. The patient states that she does not have a primary care doctor. The patient states that she is not . The patient states she does not take oral contraceptives. The patient states she is not taken aspirin recently. The patient states no DVT or pulmonary embolism risk factors. The patient states that she does not smoke, and that she is not exposed to electronic or artificial inhalants. The patient presents to the ER with a primary complaint of nasal congestion, and postnasal congestion and drip. This is causing her to have shortness of breath. It is not intrinsically painful. It has been going on for a few days. It is intermittent does not radiate anywhere, and she reports no exacerbating or relieving factors. She is concerned that she may have reflux. On secondary review of systems, she endorses intermittent central and left-sided chest wall pain for weeks and months. There is no vomiting, diaphoresis, exertional shortness of breath. The chest wall pain is aching, throbbing, increases with palpation and decreases with rest. She makes no complaint of additional symptoms. -: Gradual Location: face (nose), mouth, chest Quality: other Consistency: other Improves with: other Worsens with: other - Related Data Previous Rx's Medication Instructions Recorded Last Taken Type Fluticasone [Flonase] 1 spray NS QDAY 14 Days #1 bottle 02/21/19 Unknown Rx Ibuprofen [Motrin] 800 mg PO Q8HR PRN #30 tablet 02/21/19 Unknown Rx Loratadine 10 mg PO DAILY 14 Days #14 tablet 02/21/19 Unknown Rx Acetaminophen [Non-Aspirin Extra 500 mg PO Q6HR PRN #30 tablet 05/11/19 Unknown Rx Strength] Famotidine [Pepcid] 20 mg PO BID #60 tablet 05/11/19 Unknown Rx Fluticasone [Flonase] 1 spray NS QDAY #1 bottle 05/11/19 Unknown Rx Allergies Allergy/AdvReac Type Severity Reaction Status Date / Time amoxicillin Allergy Swelling Verified 03/11/19 14:09 ibuprofen Allergy Itching Verified 05/11/19 23:03 ED Review of Systems ROS: Stated complaint: MARGARITA Other details as noted in HPI Constitutional: denies: fever Eyes: denies: eye discharge ENT: congestion. denies: ear pain, dental pain Respiratory: denies: wheezing Cardiovascular: denies: syncope Gastrointestinal: denies: vomiting Musculoskeletal: denies: back pain Neurological: denies: weakness Hematological/Lymphatic: denies: easy bleeding ED Past Medical Hx - Past Medical History Previous Medical History?: Yes Hx Hypertension: Yes (anxiety) Hx Psychiatric Treatment: Yes (Anxiety,depression) Hx Asthma: Yes Additional medical history: OBESITY, Right Knee Pain, Sleep apnea, obese - Surgical History Past Surgical History?: Yes Additional Surgical History: C-sections X 6, Tubal Ligation, anemia - Social History Smoking Status: Never Smoker Substance Use Type: None - Medications Home Medications: Home Medications Medication Instructions Recorded Confirmed Last Taken Type Fluticasone [Flonase] 1 spray NS QDAY 14 Days #1 bottle 02/21/19 Unknown Rx Ibuprofen [Motrin] 800 mg PO Q8HR PRN #30 tablet 02/21/19 Unknown Rx Loratadine 10 mg PO DAILY 14 Days #14 tablet 02/21/19 Unknown Rx Acetaminophen [Non-Aspirin Extra 500 mg PO Q6HR PRN #30 tablet 05/11/19 Unknown Rx Strength] Famotidine [Pepcid] 20 mg PO BID #60 tablet 05/11/19 Unknown Rx Fluticasone [Flonase] 1 spray NS QDAY #1 bottle 05/11/19 Unknown Rx ED Physical Exam - General Limitations: No Limitations General appearance: alert, in no apparent distress - Head Head exam: Present: atraumatic, normocephalic - Eye Eye exam: Present: normal appearance, EOMI. Absent: nystagmus - ENT ENT exam: Present: normal exam, normal orophraynx, mucous membranes moist, normal external ear exam, other (nasal congestion is noted. There is no sinus tenderness.) - Neck Neck exam: Present: normal inspection, full ROM. Absent: tenderness, meningis mus - Respiratory Respiratory exam: Present: normal lung sounds bilaterally, chest wall tenderness (chaperoned by JEANCARLOS Montelongo). Absent: respiratory distress, wheezes, rales, rhonchi, stridor - Cardiovascular Cardiovascular Exam: Present: regular rate, normal rhythm, normal heart sounds. Absent: bradycardia, tachycardia, irregular rhythm, systolic murmur, diastolic murmur, rubs, gallop - GI/Abdominal GI/Abdominal exam: Present: soft. Absent: distended, tenderness, guarding, rebound, rigid, pulsatile mass - Extremities Exam Extremities exam: Present: normal inspection, full ROM, other (2+ pulses noted in the bilateral upper, lower extremities. There is no long bone tenderness. Musculoskeletal compartments are soft. The pelvis is stable.). Absent: pedal edema, calf tenderness - Back Exam Back exam: Present: normal inspection, full ROM. Absent: tenderness, CVA tenderness (R), CVA tenderness (L), paraspinal tenderness, vertebral tenderness - Neurological Exam Neurological exam: Present: alert, other (there is no facial droop. The tongue is midline. Extraocular movements are intact bilaterally. Patient speaking in full complete sentences. Shoulder shrug is intact bilaterally. Hearing is grossly intact bilaterally. Visual acuity intact to finger counting and color perception at a close distance. 5/5 strength 4 extremities. Sensation intact to light touch in 4 extremities.) - Psychiatric Psychiatric exam: Present: normal affect, normal mood - Skin Skin exam: Present: warm, dry, intact, normal color. Absent: rash ED Course Vital Signs 05/11/19 05/11/19 05/11/19 19:48 19:55 22:47 Temperature 98.2 F 98.3 F 98.2 F Pulse Rate 90 86 Respiratory 18 16 Rate Blood Pressure 134/86 Blood Pressure 139/77 [Left] O2 Sat by Pulse 100 99 Oximetry 05/11/19 23:08 Temperature Pulse Rate Respiratory 16 Rate Blood Pressure Blood Pressure [Left] O2 Sat by Pulse Oximetry ED Medical Decision Making - Lab Data Vital Signs 05/11/19 05/11/19 05/11/19 19:48 19:55 22:47 Temperature 98.2 F 98.3 F 98.2 F Pulse Rate 90 86 Respiratory 18 16 Rate Blood Pressure 134/86 Blood Pressure 139/77 [Left] O2 Sat by Pulse 100 99 Oximetry 05/11/19 23:08 Temperature Pulse Rate Respiratory 16 Rate Blood Pressure Blood Pressure [Left] O2 Sat by Pulse Oximetry - EKG Data -: EKG Interpreted by Ca EKG shows normal: sinus rhythm, axis, intervals, QRS complexes, ST-T waves (there is a biphasic T-wave in V2, this is suggestive of persistent juvenile T- wave inversion) Rate: normal - EKG Data When compared to previous EKG there are: previous EKG unavailable - Radiology Data Radiology results: report reviewed, image reviewed X-ray the chest is negative for acute disease - Medical Decision Making Differential diagnosis, including not limited to: Nasal congestion, allergies, reflux, postnasal drip, costochondritis, pneumonia Assessment and plan: 33-year-old female with nasal congestion, postnasal drip, chest wall pain. She is afebrile with reassuring vital signs. She has reproducible chest wall pain. She appears quite comfortable. She is reportedly allergic and intolerant of ibuprofen and NSAIDs. No pulmonary embolism or DVT risk factors, low risk by well's criteria, perc negative Patient does not appear to have an emergent medical condition at this time. We treated her symptoms. We discussed diet and lifestyle modifications. Critical care attestation.: If time is entered above; I have spent that time in minutes in the direct care of this critically ill patient, excluding procedure time. ED Disposition Clinical Impression: Chest wall pain, Nasal congestion Disposition: DC-01 TO HOME OR SELFCARE Is pt being admited?: No Does the pt Need Aspirin: No Condition: Stable Instructions: Chest Pain (ED) Additional Instructions: Take the medications as needed and directed. Patient may use home vaporizer and/or humidifier, and may use [id number] saline nasal sprays as often as needed for symptom control. Rest, avoid heavy lifting and strenuous physical activities. Avoid consumption of heavy and/or spicy foods, alcohol, and caffeinated beverages. Follow-up with the primary care doctor within the next 4-6 weeks. Return to emergency room right away with new, worsening, different symptoms, or symptoms not present on the initial emergency room evaluation. Patient may use [id number] Afrin on a temporary basis for nasal congestion, however, this medication should not be used more than once every 12 hours, and should not be used for more than 3 days consecutively. The Flonase may be used indefinitely at this time. Referrals: [facility] [Provider Group] - as needed [facility] [Provider Group] - as needed
[2019-05-11] MEDS ORDERED: TYLENOL PO ONE (23:03)
[2019-05-12 02:54] VITALS: BP 136/89
== END 2019-05-12 00:04 | disposition home or self-care (01) ==
LOC: ED 19:42
DX: J45.909 Unspecified asthma, uncomplicated (principal); R07.89 Other chest pain; F41.9 Anxiety disorder, unspecified; F32.9 Major depressive disorder, single episode, unspecified; I10 Essential (primary) hypertension; G47.30 Sleep apnea, unspecified; E66.9 Obesity, unspecified; Z68.41 Body mass index [BMI] 40.0-44.9, adult; Z79.899 Other long term (current) drug therapy; Z88.5 Allergy status to narcotic agent; Z98.51 Tubal ligation status; Z86.2 Personal history of diseases of the blood and blood-forming organs and certain disorders involving the immune mechanism
CPT/HCPCS: 71046; 93005; 93010; 99283

== ENCOUNTER 2019-05-17 19:16 | Emergency (ER) | payer MEDICAID ==
[2019-05-17 20:23] VITALS: BP 148/103
--- NOTE | 2019-05-17 20:24 | Event Note ---
ED Screening Note Date of service: 05/17/19 Time: 20:20 ED Screening Note: This is a 33 y.o. F. that presents to the ER with upper abdominal pain and anxious feeling. PMH of HTN, anxiety, and sleep apnea Patient states she woke out of sleep earlier shaking and felt uneasy. This initial assessment/diagnostic orders/clinical plan/treatment(s) is/are subject to change based on patients health status, clinical progression and re- assessment by fellow clinical providers in the ED. Further treatment and workup at subsequent clinical providers discretion. Patient/guardian urged not to elope from the ED as their condition may be serious if not clinically assessed and managed. Initial orders include: Labs
[2019-05-17 21:09] LABS: Basophils % (Auto) 0.7 % (0.0-1.8); Eosinophils % (Auto) 0.7 % (0.0-4.3); Hematocrit 35.2 % (30.3-42.9); Hemoglobin 11.7 gm/dl (10.1-14.3); Lymphocytes # (Auto) 1.7 K/mm3 (1.2-5.4); Lymphocytes % (Auto) 40.5 % (13.4-35.0); Mean Corpuscular HGB Conc 33 % (30-34); Mean Corpuscular Volume 83 fl (79-97); Monocytes # (Auto) 0.3 K/mm3 (0.0-0.8); Monocytes % (Auto) 7.1 % (0.0-7.3); Platelet Count 274 K/mm3 (140-440); Red Blood Count 4.25 M/mm3 (3.65-5.03)
--- NOTE | 2019-05-17 21:29 | Emergency Department Report ---
ED General Adult HPI - General Chief complaint: Abdominal Pain Stated complaint: HIGH BLOOD PRESSURE SHAKING Time Seen by Provider: 05/17/19 20:19 Source: patient Mode of arrival: Ambulatory Limitations: No Limitations - History of Present Illness Initial comments: 33-year-old female with history of hypertension, anxiety presents to ED with complaint that she "feels shaky on the inside." Patient states she was awakened from her sleep with this feeling. Patient reports she also experienced a sharp epigastric pain that was associated with it. However, patient states she was not as concerned about the epigastric pain, because she has experienced that pain multiple times in the past, and it is currently resolved. Patient states she took her blood pressure at home and it was 200s over 90s. Patient denies chest pain, shortness of breath. Reports nausea, lightheadedness. Denies numbness or tingling or paresthesias. Patient has a history of anxiety, however, states she does not think it is her anxiety because she has nothing to be anxious about currently. Patient states she thought possibly her blood sugar could be low. Patient states that she is not diabetic. -: This evening Quality: other ("feels shaky on the inside") Improves with: none Worsens with: none Associated Symptoms: denies: chest pain, fever/chills, headaches, nausea/vomiting, shortness of breath - Related Data Previous Rx's Medication Instructions Recorded Last Taken Type Fluticasone [Flonase] 1 spray NS QDAY 14 Days #1 bottle 02/21/19 Unknown Rx Ibuprofen [Motrin] 800 mg PO Q8HR PRN #30 tablet 02/21/19 Unknown Rx Loratadine 10 mg PO DAILY 14 Days #14 tablet 02/21/19 Unknown Rx Acetaminophen [Non-Aspirin Extra 500 mg PO Q6HR PRN #30 tablet 05/11/19 Unknown Rx Strength] Famotidine [Pepcid] 20 mg PO BID #60 tablet 05/11/19 Unknown Rx Fluticasone [Flonase] 1 spray NS QDAY #1 bottle 05/11/19 Unknown Rx Allergies Allergy/AdvReac Type Severity Reaction Status Date / Time amoxicillin Allergy Swelling Verified 03/11/19 14:09 ibuprofen Allergy Itching Verified 05/11/19 23:03 ED Review of Systems ROS: Stated complaint: HIGH BLOOD PRESSURE SHAKING Other details as noted in HPI Comment: All other systems reviewed and negative Constitutional: denies: chills, fever Respiratory: denies: shortness of breath Cardiovascular: denies: chest pain Gastrointestinal: abdominal pain, nausea. denies: vomiting Neurological: other (reports lightheadedness). denies: paresthesias ED Past Medical Hx - Past Medical History Hx Hypertension: Yes (anxiety) Hx Psychiatric Treatment: Yes (Anxiety,depression) Hx Asthma: Yes Additional medical history: OBESITY, Right Knee Pain, Sleep apnea, obese - Surgical History Additional Surgical History: C-sections X 6, Tubal Ligation, anemia - Social History Smoking Status: Never Smoker Substance Use Type: None - Medications Home Medications: Home Medications Medication Instructions Recorded Confirmed Last Taken Type Fluticasone [Flonase] 1 spray NS QDAY 14 Days #1 bottle 02/21/19 Unknown Rx Ibuprofen [Motrin] 800 mg PO Q8HR PRN #30 tablet 02/21/19 Unknown Rx Loratadine 10 mg PO DAILY 14 Days #14 tablet 02/21/19 Unknown Rx Acetaminophen [Non-Aspirin Extra 500 mg PO Q6HR PRN #30 tablet 05/11/19 Unknown Rx Strength] Famotidine [Pepcid] 20 mg PO BID #60 tablet 05/11/19 Unknown Rx Fluticasone [Flonase] 1 spray NS QDAY #1 bottle 05/11/19 Unknown Rx ED Physical Exam - General Limitations: No Limitations General appearance: alert, in no apparent distress, other (nontoxic appearing, watching video on cell phone) - Head Head exam: Present: atraumatic, normocephalic - Eye Eye exam: Present: normal appearance, PERRL, EOMI - ENT ENT exam: Present: mucous membranes moist - Neck Neck exam: Present: normal inspection - Respiratory Respiratory exam: Present: normal lung sounds bilaterally. Absent: respiratory distress - Cardiovascular Cardiovascular Exam: Present: regular rate, normal rhythm - GI/Abdominal GI/Abdominal exam: Present: soft. Absent: distended, tenderness - Extremities Exam Extremities exam: Present: normal inspection - Neurological Exam Neurological exam: Present: alert, oriented X3, CN II-XII intact - Psychiatric Psychiatric exam: Present: normal affect, normal mood. Absent: anxious - Skin Skin exam: Present: warm, dry, intact, normal color ED Course Vital Signs 05/17/19 05/17/19 05/17/19 19:28 20:19 20:23 Temperature 98.3 F 98.3 F Pulse Rate 86 85 90 Respiratory 16 16 16 Rate Blood Pressure 142/91 142/91 Blood Pressure 148/103 [Right] O2 Sat by Pulse 98 98 Oximetry 05/17/19 23:39 Temperature Pulse Rate Respiratory 18 Rate Blood Pressure Blood Pressure [Right] O2 Sat by Pulse Oximetry ED Medical Decision Making - Lab Data Result diagrams: 05/17/19 20:39 05/17/19 20:39 - Medical Decision Making Labs unremarkable. Blood pressure improved compared to reading at home. Likely anxiety. Patient is currently calm, comfortable, nontoxic-appearing. Outpatient follow-up advised. Return precautions given. - Differential Diagnosis anxiety Critical care attestation.: If time is entered above; I have spent that time in minutes in the direct care of this critically ill patient, excluding procedure time. ED Disposition Clinical Impression: Anxiety Disposition: DC-01 TO HOME OR SELFCARE Is pt being admited?: No Condition: Stable Instructions: Anxiety (ED) Referrals: PRIMARY CARE [Primary Care Provider] - 3-5 Days Time of Disposition: 23:17
[2019-05-17 22:49] LABS: Alanine Aminotransferase 14 units/L (7-56); Albumin 4.2 g/dL (3.9-5); BUN/Creatinine Ratio 16; Blood Urea Nitrogen 8 mg/dL (7-17); Calcium 9.2 mg/dL (8.4-10.2); Hemolysis Index 17
== END 2019-05-17 23:40 | disposition home or self-care (01) ==
LOC: ED 19:16
DX: F41.9 Anxiety disorder, unspecified (principal); I10 Essential (primary) hypertension; J45.909 Unspecified asthma, uncomplicated; F32.9 Major depressive disorder, single episode, unspecified; Z88.0 Allergy status to penicillin; Z88.6 Allergy status to analgesic agent; Z98.51 Tubal ligation status
CPT/HCPCS: 36415; 80053; 84703; 85025

== ENCOUNTER 2019-05-21 20:11 | Emergency (ER) | payer MEDICAID ==
--- NOTE | 2019-05-21 20:14 | Event Note ---
ED Screening Note Date of service: 05/21/19 Time: 20:14 ED Screening Note: Patient dizziness and lightheadedness that stated 2 hours ago. Reports pounding pain to center of head. H/O HTN with elevated blood pressure today. Denies cp or sob. Denies abdominal pain. Reports TRIPP and neck pain without any trauma. No NV. Denies fever or chills. A&O x3, facial grimacing. GCS 15 Head: atraumatic, normocephalic Neck. Positive c spine tenderness This initial assessment/diagnostic orders/clinical plan/treatment(s) is/are subject to change based on patients health status, clinical progression and re- assessment by fellow clinical providers in the ED. Further treatment and workup at subsequent clinical providers discretion. Patient/guardian urged not to elope from the ED as their condition may be serious if not clinically assessed and managed. Initial orders include:
[2019-05-21 20:37] LABS: Bilirubin,Urine NEG (Negative); Blood,Urine NEG (Negative); Color,Urine Straw (Yellow); Mucus,Urine FEW /HPF; Protein,Urine <15 mg/dL mg/dL (Negative); Urobilinogen,Urine < 2.0 mg/dL (<2.0); WBC,Urine < 1.0 /HPF (0.0-6.0)
--- NOTE | 2019-05-21 20:42 | Emergency Department Report ---
ED Dizziness HPI - General Chief Complaint: Dizziness Stated Complaint: DIZZINESS/LIGHTHEADED Time Seen by Provider: 05/21/19 20:13 Source: patient Mode of arrival: Ambulatory Limitations: No Limitations - History of Present Illness Initial Comments: Patient is a 33 y/o aaf denies medical hx Asthma, HTN, and Anxiety, who presenst for dizziness and lightheadedness that stated 2 hours ago. Reports pounding pain to center of head. sinus drainage, and bilat ear pain. pt denies fever or chills, no n/v , no blurred vision, no throat pain. no hx of migraine headache. MD Complaint: dizziness, other (sinus pain and pressure ) -: Sudden Time: 02:00 Timing: sudden onset Description: lightheadedness History of Same: No History of Trauma: No Severity: moderate Improves With: rest Worsens With: movement, position Associated Symptoms: denies: chest pain, cough, diaphoresis, fever/chills, loss of appetite, malaise, rash, seizure, shortness of breath, syncope, weakness - Related Data Previous Rx's Medication Instructions Recorded Last Taken Type Fluticasone [Flonase] 1 spray NS QDAY 14 Days #1 bottle 02/21/19 Unknown Rx Ibuprofen [Motrin] 800 mg PO Q8HR PRN #30 tablet 02/21/19 Unknown Rx Loratadine 10 mg PO DAILY 14 Days #14 tablet 02/21/19 Unknown Rx Acetaminophen [Non-Aspirin Extra 500 mg PO Q6HR PRN #30 tablet 05/11/19 Unknown Rx Strength] Famotidine [Pepcid] 20 mg PO BID #60 tablet 05/11/19 Unknown Rx Fluticasone [Flonase] 1 spray NS QDAY #1 bottle 05/11/19 Unknown Rx Acetaminophen [Tylenol] 1,000 mg PO Q6HR PRN #30 tablet 05/21/19 Unknown Rx Clindamycin [Clindamycin CAP] 300 mg PO Q8H 10 Days #30 cap 05/21/19 Unknown Rx diphenhydrAMINE [Benadryl CAP] 25 mg PO Q8HR PRN #30 capsule 05/21/19 Unknown Rx Allergies Allergy/AdvReac Type Severity Reaction Status Date / Time amoxicillin Allergy Swelling Verified 03/11/19 14:09 ibuprofen Allergy Itching Verified 05/11/19 23:03 ED Review of Systems ROS: Stated complaint: DIZZINESS/LIGHTHEADED Other details as noted in HPI Constitutional: denies: chills, fever Eyes: denies: eye pain, eye discharge, vision change ENT: ear pain, congestion Respiratory: denies: cough, shortness of breath, wheezing Cardiovascular: denies: chest pain, palpitations Endocrine: no symptoms reported Gastrointestinal: denies: abdominal pain, nausea, diarrhea Genitourinary: denies: urgency, dysuria, discharge Musculoskeletal: denies: back pain, joint swelling, arthralgia Skin: denies: rash, lesions Neurological: headache. denies: weakness, numbness, paresthesias, abnormal gait, vertigo Psychiatric: anxiety Hematological/Lymphatic: denies: easy bleeding, easy bruising ED Past Medical Hx - Past Medical History Previous Medical History?: Yes Hx Hypertension: Yes (anxiety) Hx Psychiatric Treatment: Yes (Anxiety,depression) Hx Asthma: Yes Additional medical history: OBESITY, Right Knee Pain, Sleep apnea, obese - Surgical History Past Surgical History?: Yes Additional Surgical History: C-sections X 6, Tubal Ligation, anemia - Social History Smoking Status: Never Smoker Substance Use Type: None - Medications Home Medications: Home Medications Medication Instructions Recorded Confirmed Last Taken Type Fluticasone [Flonase] 1 spray NS QDAY 14 Days #1 bottle 02/21/19 Unknown Rx Ibuprofen [Motrin] 800 mg PO Q8HR PRN #30 tablet 02/21/19 Unknown Rx Loratadine 10 mg PO DAILY 14 Days #14 tablet 02/21/19 Unknown Rx Acetaminophen [Non-Aspirin Extra 500 mg PO Q6HR PRN #30 tablet 05/11/19 Unknown Rx Strength] Famotidine [Pepcid] 20 mg PO BID #60 tablet 05/11/19 Unknown Rx Fluticasone [Flonase] 1 spray NS QDAY #1 bottle 05/11/19 Unknown Rx Acetaminophen [Tylenol] 1,000 mg PO Q6HR PRN #30 tablet 05/21/19 Unknown Rx Clindamycin [Clindamycin CAP] 300 mg PO Q8H 10 Days #30 cap 05/21/19 Unknown Rx diphenhydrAMINE [Benadryl CAP] 25 mg PO Q8HR PRN #30 capsule 05/21/19 Unknown Rx ED Physical Exam - General Limitations: No Limitations General appearance: alert, in no apparent distress - Head Head exam: Present: atraumatic, normocephalic, normal inspection - Eye Eye exam: Present: normal appearance, PERRL, EOMI Pupils: Present: normal accommodation. Absent: unequal - ENT ENT exam: Present: mucous membranes moist, other (bilat frontal maxillary sinus pain , no swelling or erythema) - Expanded ENT Exam Expanded Ear exam: Present: normal external inspection TM/Canal exam: Erythema: Right TM, Left TM, Effusion: Right TM, Canal Tenderness: Right TM, Left TM Throat exam: Positive: other (uvula midline no exudater no lesions no stridor moderate clear post nasal drip ). Negative: tonsillar erythema, tonsillomegaly, tonsillar exudate, R peritonsillar mass, L peritonsillar mass - Neck Neck exam: Present: normal inspection, full ROM. Absent: tenderness, meningismus, lymphadenopathy, thyromegaly - Expanded Neck Exam Expanded Neck exam: Absent: tenderness (no posterior vertebral point tenderness rom intact unrestricted, no swelling no stepoff no crepitus ), midline deformity, anterior neck swelling, thyroid mass, carotid bruit, tracheal deviation - Respiratory Respiratory exam: Present: normal lung sounds bilaterally. Absent: respiratory distress, wheezes, stridor, chest wall tenderness - Cardiovascular Cardiovascular Exam: Present: regular rate, normal rhythm, normal heart sounds. Absent: systolic murmur, diastolic murmur, rubs, gallop - GI/Abdominal GI/Abdominal exam: Present: soft, normal bowel sounds. Absent: distended, tenderness, bruit, hernia - Rectal Rectal exam: Present: deferred - Extremities Exam Extremities exam: Present: normal inspection, full ROM, normal capillary refill - Back Exam Back exam: Present: normal inspection, full ROM, tenderness. Absent: CVA tenderness (R), CVA tenderness (L), muscle spasm, paraspinal tenderness, vertebral tenderness, rash noted - Neurological Exam Neurological exam: Present: alert, oriented X3, CN II-XII intact, normal gait, reflexes normal. Absent: motor sensory deficit - Psychiatric Psychiatric exam: Present: normal affect, normal mood - Skin Skin exam: Present: warm, dry, intact, normal color. Absent: rash ED Medical Decision Making - Lab Data Result diagrams: 05/21/19 21:01 05/21/19 21:01 - Radiology Data Radiology results: report reviewed, image reviewed Ordering Physician: BENITEZ WADE Date of Service: 05/21/19 Procedure(s): CT head/brain wo con Accession Number(s): [id number] cc: BENITEZ WADE CT head without contrast INDICATION : Headache, dizziness. TECHNIQUE: Axial imaging performed from the skull apex through the skull base without the use of contrast. All CT scans at this location are performed using CT dose reduction for ALARA by means of automated exposure control. COMPARISON: CT head from 03/11/2019 FINDINGS: Parenchyma: No acute intracranial hemorrhage or parenchymal abnormality. Ventricles: Ventricles are normal in size and appear symmetric. Soft tissues: Soft tissues including the orbits appear normal. Bones: No acute osseous abnormality. Sinuses: Sinuses and mastoid air cells are clear. IMPRESSION: No acute abnormality. Signer Name: Checo Dia MD Signed: 05/21/2019 8:59 PM Workstation Name: [id number] Transcribed By: JW Dictated By: Checo Dia MD Electronically Authenticated By: Checo Dia MD Signed Date/Time: 05/21/192058 DD/ 57 TD/TT: - Medical Decision Making CT head normal no mass, no bleed, no abnormality, ct c spine: normal, no fracture no soft tissue abnormality, pt A&O x3, facial grimacing. GCS 15 Head: atraumatic, normocephalic Neck. no postrior vertebral point tenderness. Plan tx for AOM, pt is pcn allergic, will tx with clindamycin, Ibuprofen, pt will follow up with pcp in 2-3 days , return to ed if symptoms worsen. pt verbalized agreement and understanding of discharge plan. Vital signs: bp 149/79, r:16, P:90, temp: 98.7 , Critical care attestation.: If time is entered above; I have spent that time in minutes in the direct care of this critically ill patient, excluding procedure time. ED Disposition Clinical Impression: AOM (acute otitis media) Qualifiers: Otitis media type: serous Laterality: bilateral Recurrence: non-recurrent Qualified Code(s): H65.03 - Acute serous otitis media, bilateral Headache Qualifiers: Headache type: unspecified Headache chronicity pattern: acute headache Intractability: not intractable Qualified Code(s): R51 - Headache Disposition: DC-01 TO HOME OR SELFCARE Is pt being admited?: No Does the pt Need Aspirin: No Condition: Stable Instructions: Otitis Media (ED), Acute Headache (ED) Prescriptions: Acetaminophen [Tylenol] 1,000 mg PO Q6HR PRN #30 tablet PRN Reason: pain fever diphenhydrAMINE [Benadryl CAP] 25 mg PO Q8HR PRN #30 capsule PRN Reason: dizziness / congestion Clindamycin [Clindamycin CAP] 300 mg PO Q8H 10 Days #30 cap Referrals: PRIMARY CARE, [Referring] - 3-5 Days Time of Disposition: 21:25
[2019-05-21 20:52] LABS: Amphetamine Screen,Urine PRESUMPTIVE NEGATIVE; Benzodiazepines Screen,Urine PRESUMPTIVE NEGATIVE; Cannabinoid Screen,Urine PRESUMPTIVE NEGATIVE; Cocaine Screen,Urine PRESUMPTIVE NEGATIVE; Methadone Screen,Urine PRESUMPTIVE NEGATIVE; Opiate Screen,Urine PRESUMPTIVE NEGATIVE
[2019-05-21] MEDS ORDERED: BENADRYL PO ONE (21:01)
[2019-05-21] MEDS ORDERED: DELTASONE PO ONE (21:01)
[2019-05-21] MEDS ORDERED: TYLENOL PO ONE (21:02)
--- NOTE | 2019-05-21 21:03 | Cat Scan Report ---
CT head without contrast INDICATION : Headache, dizziness. TECHNIQUE: Axial imaging performed from the skull apex through the skull base without the use of con trast. All CT scans at this location are performed using CT dose reduction for ALARA by means of aut omated exposure control. COMPARISON: CT head from 03/11/2019 FINDINGS: Parenchyma: No acute intracranial hemorrhage or parenchymal abnormality. Ventricles: Ventricles are normal in size and appear symmetric. Soft tissues: Soft tissues including the orbits appear normal. Bones: No acute osseous abnormality. Sinuses: Sinuses and mastoid air cells are clear. IMPRESSION: No acute abnormality. Signer Name: Checo Dia MD Signed: 05/21/2019 8:59 PM Workstation Name: [id number]
--- NOTE | 2019-05-21 21:22 | Cat Scan Report ---
CT cervical spine spine without contrast INDICATION: Generalized neck pain for the past month with no reported trauma. TECHNIQUE: Axial imaging performed through the cervical spine without the use of contrast. Sagittal and coronal reconstructed images were also reviewed. All CT scans at this location are performed us ing CT dose reduction for ALARA by means of automated exposure control. COMPARISON: None FINDINGS: Alignment: Spinal alignment is normal. Bones: There is no acute osseous abnormality. Mild multilevel discogenic DJD is present. Soft tissues: No acute or significant incidental soft tissue abnormality. IMPRESSION: No acute abnormality. Signer Name: Checo Dia MD Signed: 05/21/2019 9:18 PM Workstation Name: [id number]
[2019-05-21 21:25] LABS: Basophils % (Auto) 0.6 % (0.0-1.8); Eosinophils % (Auto) 0.8 % (0.0-4.3); Hematocrit 35.1 % (30.3-42.9); Hemoglobin 11.5 gm/dl (10.1-14.3); Lymphocytes % (Auto) 46.4 % (13.4-35.0); Mean Corpuscular HGB Conc 33 % (30-34); Mean Corpuscular Volume 82 fl (79-97); Monocytes # (Auto) 0.3 K/mm3 (0.0-0.8); Monocytes % (Auto) 6.5 % (0.0-7.3); Platelet Count 246 K/mm3 (140-440); Red Blood Count 4.26 M/mm3 (3.65-5.03); Red Cell Distribution Width 16.4 % (13.2-15.2)
[2019-05-21 21:47] LABS: Alanine Aminotransferase 11 units/L (7-56); BUN/Creatinine Ratio 18; Blood Urea Nitrogen 9 mg/dL (7-17); Calcium 9.3 mg/dL (8.4-10.2); Hemolysis Index 2
[2019-05-21 22:12] VITALS: BP 130/85
== END 2019-05-21 22:12 | disposition home or self-care (01) ==
LOC: ED 20:11
DX: H66.93 Otitis media, unspecified, bilateral (principal); I10 Essential (primary) hypertension; F41.9 Anxiety disorder, unspecified; F32.9 Major depressive disorder, single episode, unspecified; D64.9 Anemia, unspecified; Z98.51 Tubal ligation status; Z79.899 Other long term (current) drug therapy; Z88.8 Allergy status to other drugs, medicaments and biological substances
CPT/HCPCS: 36415; 70450; 72125; 80053; 80307; 81001; 84703; 85025; 99284; J7512

== ENCOUNTER 2019-06-01 18:24 | Emergency (ER) | payer MEDICAID ==
--- NOTE | 2019-06-01 19:26 | Event Note ---
ED Screening Note Date of service: 06/01/19 Time: 19:22 ED Screening Note: This is a 33 y.o. F. that presents to the ER with chest discomfort and upper back pain. PMH of anxiety, htn, asthma, sleep apnea, and depression. States chest pain for 3 months. Stress test and echocardiography in January by Cardiology. This initial assessment/diagnostic orders/clinical plan/treatment(s) is/are subject to change based on patients health status, clinical progression and re- assessment by fellow clinical providers in the ED. Further treatment and workup at subsequent clinical providers discretion. Patient/guardian urged not to elope from the ED as their condition may be serious if not clinically assessed and managed. Initial orders include: CXR Normal CT of C-spine last month.
--- NOTE | 2019-06-01 20:00 | XRay Report ---
CHEST 2 VIEWS INDICATION / CLINICAL INFORMATION: chest discomfort. COMPARISON: Chest x-ray on 05/11/2019. FINDINGS: SUPPORT DEVICES: None. HEART / MEDIASTINUM: No significant abnormality. LUNGS / PLEURA: No significant pulmonary or pleural abnormality. No pneumothorax. ADDITIONAL FINDINGS: No significant additional findings. IMPRESSION: 1. No acute findings. No significant change from the prior study. Signer Name: Colton Berry MD Signed: 06/01/2019 7:56 PM Workstation Name: [email or web address]
[2019-06-01] MEDS ORDERED: CYCLOBENZAPRINE 10 MG TAB PO ONE (21:52)
[2019-06-01] MEDS ORDERED: KETOROLAC 30 MG/1 ML INJ IM ONE (21:52)
--- NOTE | 2019-06-01 22:13 | Emergency Department Report ---
ED General Adult HPI - General Chief complaint: Back Pain/Injury Stated complaint: BACK AND CHEST PAIN Time Seen by Provider: 06/01/19 19:22 Source: patient Mode of arrival: Ambulatory Limitations: No Limitations - History of Present Illness Initial comments: This is a 33-year-old female who presents to ED complaining of upper back pain for the past 3 months and some congestion for the past week. Patient describes upper back pain as intermittent that comes and goes feels like spasms. Patient denies any trauma i or a fall. She states she has a history of asthma which she currently takes medication for. Patient denies any heavy lifting of any kind. She denies shortness of breath, coughing, fever, nausea, vomiting, abdominal pain, blurry vision or headache. Severity scale (0 -10): 8 - Related Data Previous Rx's Medication Instructions Recorded Last Taken Type Fluticasone [Flonase] 1 spray NS QDAY 14 Days #1 bottle 02/21/19 Unknown Rx Ibuprofen [Motrin] 800 mg PO Q8HR PRN #30 tablet 02/21/19 Unknown Rx Loratadine 10 mg PO DAILY 14 Days #14 tablet 02/21/19 Unknown Rx Acetaminophen [Non-Aspirin Extra 500 mg PO Q6HR PRN #30 tablet 05/11/19 Unknown Rx Strength] Famotidine [Pepcid] 20 mg PO BID #60 tablet 05/11/19 Unknown Rx Fluticasone [Flonase] 1 spray NS QDAY #1 bottle 05/11/19 Unknown Rx Acetaminophen [Tylenol] 1,000 mg PO Q6HR PRN #30 tablet 05/21/19 Unknown Rx Clindamycin [Clindamycin CAP] 300 mg PO Q8H 10 Days #30 cap 05/21/19 Unknown Rx diphenhydrAMINE [Benadryl CAP] 25 mg PO Q8HR PRN #30 capsule 05/21/19 Unknown Rx Cyclobenzaprine [Flexeril] 10 mg PO BID PRN #25 tablet 06/01/19 Unknown Rx Allergies Allergy/AdvReac Type Severity Reaction Status Date / Time amoxicillin Allergy Swelling Verified 03/11/19 14:09 ibuprofen Allergy Itching Verified 05/11/19 23:03 ED Review of Systems ROS: Stated complaint: BACK AND CHEST PAIN Other details as noted in HPI Comment: All other systems reviewed and negative Constitutional: denies: chills, fever Eyes: denies: eye pain, eye discharge, vision change ENT: denies: ear pain, throat pain Respiratory: denies: cough, shortness of breath, wheezing Cardiovascular: denies: chest pain, palpitations Endocrine: no symptoms reported Gastrointestinal: denies: abdominal pain, nausea, diarrhea Genitourinary: denies: urgency, dysuria, discharge Musculoskeletal: back pain, myalgia. denies: joint swelling, arthralgia Skin: denies: rash, lesions Neurological: denies: headache, weakness, paresthesias Psychiatric: denies: anxiety, depression Hematological/Lymphatic: denies: easy bleeding, easy bruising ED Past Medical Hx - Past Medical History Previous Medical History?: Yes Hx Hypertension: Yes (anxiety) Hx Psychiatric Treatment: Yes (Anxiety,depression) Hx Asthma: Yes Additional medical history: OBESITY, Right Knee Pain, Sleep apnea, obese - Surgical History Past Surgical History?: Yes Additional Surgical History: C-sections X 6, Tubal Ligation, anemia - Social History Smoking Status: Never Smoker Substance Use Type: None - Medications Home Medications: Home Medications Medication Instructions Recorded Confirmed Last Taken Type Fluticasone [Flonase] 1 spray NS QDAY 14 Days #1 bottle 02/21/19 Unknown Rx Ibuprofen [Motrin] 800 mg PO Q8HR PRN #30 tablet 02/21/19 Unknown Rx Loratadine 10 mg PO DAILY 14 Days #14 tablet 02/21/19 Unknown Rx Acetaminophen [Non-Aspirin Extra 500 mg PO Q6HR PRN #30 tablet 05/11/19 Unknown Rx Strength] Famotidine [Pepcid] 20 mg PO BID #60 tablet 05/11/19 Unknown Rx Fluticasone [Flonase] 1 spray NS QDAY #1 bottle 05/11/19 Unknown Rx Acetaminophen [Tylenol] 1,000 mg PO Q6HR PRN #30 tablet 05/21/19 Unknown Rx Clindamycin [Clindamycin CAP] 300 mg PO Q8H 10 Days #30 cap 05/21/19 Unknown Rx diphenhydrAMINE [Benadryl CAP] 25 mg PO Q8HR PRN #30 capsule 05/21/19 Unknown Rx Cyclobenzaprine [Flexeril] 10 mg PO BID PRN #25 tablet 06/01/19 Unknown Rx ED Physical Exam - General Limitations: No Limitations General appearance: alert, in no apparent distress - Head Head exam: Present: atraumatic, normocephalic - Eye Eye exam: Present: normal appearance - ENT ENT exam: Present: mucous membranes moist - Neck Neck exam: Present: normal inspection - Respiratory Respiratory exam: Present: normal lung sounds bilaterally. Absent: respiratory distress - Cardiovascular Cardiovascular Exam: Present: regular rate, normal rhythm. Absent: systolic murmur, diastolic murmur, rubs, gallop - GI/Abdominal GI/Abdominal exam: Present: soft, normal bowel sounds - Extremities Exam Extremities exam: Present: normal inspection - Back Exam Back exam: Present: normal inspection, full ROM, tenderness (to palpation of the latissimus dorsi of the back.), muscle spasm. Absent: CVA tenderness (R), CVA tenderness (L) - Neurological Exam Neurological exam: Present: alert, oriented X3 - Psychiatric Psychiatric exam: Present: normal affect, normal mood - Skin Skin exam: Present: warm, dry, intact, normal color. Absent: rash ED Course Vital Signs 06/01/19 06/01/19 19:21 22:02 Temperature 98.4 F Pulse Rate 79 Respiratory 20 18 Rate Blood Pressure 123/85 O2 Sat by Pulse 99 Oximetry ED Medical Decision Making - Radiology Data Radiology results: report reviewed, image reviewed chest discomfort. COMPARISON: Chest x-ray on 05/11/2019. FINDINGS: SUPPORT DEVICES: None. HEART / MEDIASTINUM: No significant abnormality. LUNGS / PLEURA: No significant pulmonary or pleural abnormality. No pneumothorax. ADDITIONAL FINDINGS: No significant additional findings. IMPRESSION: 1. No acute findings. No significant change from the prior study. Signer Name: Colton Berry MD Signed: 06/01/2019 7:56 PM Workstation Name: [id number] Transcribed By: ARIANNA Dictated By: Colton Berry MD Electronically Authenticated By: Colton Berry MD Signed Date/Time: 06/01/191955 - Medical Decision Making 35-year-old female presents to ED with thoracic/muscle spasm of the back ED course: Patient received Toradol and Flexeril in ED. Chest x-ray was ordered and completed shows no acute findings Discussed all findings with the patient. Discussed with the patient that she may need an orthopedic Dr. referrals given. Vital signs are normal patient is in no acute distress Discussed with patient follow-up with primary care physician. Discussed the patient and take medications as prescribed. Patient has no neurological deficit. Patient is alert and oriented 3 and understands all instructions given. Discussed drowsiness effect of Flexeril makes her drowsy and not to operate machinery while taking flexeril Critical care attestation.: If time is entered above; I have spent that time in minutes in the direct care of this critically ill patient, excluding procedure time. ED Disposition Clinical Impression: Spasm of thoracic back muscle Disposition: - TO HOME OR SELFCARE Is pt being admited?: No Does the pt Need Aspirin: No Condition: Stable Instructions: Trigger Point Pain (ED), Cervical Radiculopathy (ED) Additional Instructions: Make sure to follow up with the primary care physician as discussed. Take all your medications as you've been prescribed. If you have any worsening symptoms or develop new symptoms please return to ED immediately. Prescriptions: Cyclobenzaprine [Flexeril] 10 mg PO BID PRN #25 tablet PRN Reason: Muscle Spasm Referrals: PRIMARY CAREMD [Primary Care Provider] - 3-5 Days KENDELL ARNETT MD [Staff Physician] - 3-5 Days [facility] [Provider Group] - 3-5 Days [facility] [Outside] - 3-5 Days [facility] [Outside] - 3-5 Days Forms: Work/School Release Form(ED) Time of Disposition: 22:19
[2019-06-01] MEDS ORDERED: KETOROLAC 60 MG/2 ML INJ ONE (22:22)
[2019-06-01 22:43] VITALS: BP 121/80
== END 2019-06-01 22:40 | disposition home or self-care (01) ==
LOC: ED 18:24
DX: M62.830 Muscle spasm of back (principal); F41.9 Anxiety disorder, unspecified; F32.9 Major depressive disorder, single episode, unspecified; I10 Essential (primary) hypertension; D64.9 Anemia, unspecified; Z98.51 Tubal ligation status; Z79.899 Other long term (current) drug therapy; Z88.1 Allergy status to other antibiotic agents; Z88.6 Allergy status to analgesic agent
CPT/HCPCS: 71046; 96372; 99283; J1885

== ENCOUNTER 2019-06-22 13:45 | Emergency (ER) | payer MEDICAID ==
[2019-06-22 14:04] VITALS: BP 147/86
--- NOTE | 2019-06-22 14:06 | Event Note ---
ED Screening Note Date of service: 06/22/19 Time: 14:01 ED Screening Note: This is a 33 y.o. F. that presents to the ER with dizziness since this morning. PMH of HTN, anemia, and asthma LMP 06/13/2019 This initial assessment/diagnostic orders/clinical plan/treatment(s) is/are subject to change based on patients health status, clinical progression and re- assessment by fellow clinical providers in the ED. Further treatment and workup at subsequent clinical providers discretion. Patient/guardian urged not to elope from the ED as their condition may be serious if not clinically assessed and managed. Initial orders include: Accucheck
[2019-06-22] MEDS ORDERED: SODIUM CHLORIDE 0.9% 1000 ML 1,000 ML IV ONE (16:26)
[2019-06-22 16:58] LABS: Basophils % (Auto) 1.1 % (0.0-1.8); Eosinophils % (Auto) 1.1 % (0.0-4.3); Hematocrit 36.6 % (30.3-42.9); Hemoglobin 11.7 gm/dl (10.1-14.3); Lymphocytes # (Auto) 1.8 K/mm3 (1.2-5.4); Lymphocytes % (Auto) 45.5 % (13.4-35.0); Mean Corpuscular HGB Conc 32 % (30-34); Mean Corpuscular Volume 84 fl (79-97); Monocytes # (Auto) 0.3 K/mm3 (0.0-0.8); Monocytes % (Auto) 8.1 % (0.0-7.3); Platelet Count 245 K/mm3 (140-440); Red Blood Count 4.37 M/mm3 (3.65-5.03); Red Cell Distribution Width 16.6 % (13.2-15.2)
--- NOTE | 2019-06-22 17:01 | Emergency Department Report ---
ED General Adult HPI - General Chief complaint: Weakness Stated complaint: DIZZINESS/LIGHTHEADED Time Seen by Provider: 06/22/19 14:01 Source: patient Mode of arrival: Ambulatory Limitations: No Limitations - History of Present Illness Initial comments: Patient is a 33-year-old Gay[place] female who states that since this morning she has been lightheaded and dizzy when standing. States she feels weak and feels that she is going to "pass out". Patient denies chest pain shortness of breath fevers chills nausea vomiting diarrhea cough cold congestion sore throat decreased urination and urinary frequency and vaginal discharge or vaginal bleeding. Patient states she does not have any reason that she would be lightheaded but her symptoms of been consistent throughout the day that when she stands he feels as though she is going to lose consciousness. - Related Data Previous Rx's Medication Instructions Recorded Last Taken Type Fluticasone [Flonase] 1 spray NS QDAY 14 Days #1 bottle 02/21/19 Unknown Rx Ibuprofen [Motrin] 800 mg PO Q8HR PRN #30 tablet 02/21/19 Unknown Rx Loratadine 10 mg PO DAILY 14 Days #14 tablet 02/21/19 Unknown Rx Acetaminophen [Non-Aspirin Extra 500 mg PO Q6HR PRN #30 tablet 05/11/19 Unknown Rx Strength] Famotidine [Pepcid] 20 mg PO BID #60 tablet 05/11/19 Unknown Rx Fluticasone [Flonase] 1 spray NS QDAY #1 bottle 05/11/19 Unknown Rx Acetaminophen [Tylenol] 1,000 mg PO Q6HR PRN #30 tablet 05/21/19 Unknown Rx Clindamycin [Clindamycin CAP] 300 mg PO Q8H 10 Days #30 cap 05/21/19 Unknown Rx diphenhydrAMINE [Benadryl CAP] 25 mg PO Q8HR PRN #30 capsule 05/21/19 Unknown Rx Cyclobenzaprine [Flexeril] 10 mg PO BID PRN #25 tablet 06/01/19 Unknown Rx Allergies Allergy/AdvReac Type Severity Reaction Status Date / Time amoxicillin Allergy Swelling Verified 03/11/19 14:09 ibuprofen Allergy Itching Verified 05/11/19 23:03 ED Review of Systems ROS: Stated complaint: DIZZINESS/LIGHTHEADED Other details as noted in HPI Comment: All other systems reviewed and negative ED Past Medical Hx - Past Medical History Hx Hypertension: Yes (anxiety) Hx Psychiatric Treatment: Yes (Anxiety,depression) Hx Asthma: Yes Additional medical history: OBESITY, Right Knee Pain, Sleep apnea, obese - Surgical History Additional Surgical History: C-sections X 6, Tubal Ligation, anemia - Social History Smoking Status: Never Smoker Substance Use Type: None - Medications Home Medications: Home Medications Medication Instructions Recorded Confirmed Last Taken Type Fluticasone [Flonase] 1 spray NS QDAY 14 Days #1 bottle 02/21/19 Unknown Rx Ibuprofen [Motrin] 800 mg PO Q8HR PRN #30 tablet 02/21/19 Unknown Rx Loratadine 10 mg PO DAILY 14 Days #14 tablet 02/21/19 Unknown Rx Acetaminophen [Non-Aspirin Extra 500 mg PO Q6HR PRN #30 tablet 05/11/19 Unknown Rx Strength] Famotidine [Pepcid] 20 mg PO BID #60 tablet 05/11/19 Unknown Rx Fluticasone [Flonase] 1 spray NS QDAY #1 bottle 05/11/19 Unknown Rx Acetaminophen [Tylenol] 1,000 mg PO Q6HR PRN #30 tablet 05/21/19 Unknown Rx Clindamycin [Clindamycin CAP] 300 mg PO Q8H 10 Days #30 cap 05/21/19 Unknown Rx diphenhydrAMINE [Benadryl CAP] 25 mg PO Q8HR PRN #30 capsule 05/21/19 Unknown Rx Cyclobenzaprine [Flexeril] 10 mg PO BID PRN #25 tablet 06/01/19 Unknown Rx ED Physical Exam - General Limitations: No Limitations General appearance: alert, in no apparent distress - Head Head exam: Present: atraumatic, normocephalic - Eye Eye exam: Present: normal appearance, PERRL, EOMI - ENT ENT exam: Present: mucous membranes moist - Neck Neck exam: Present: normal inspection - Respiratory Respiratory exam: Present: normal lung sounds bilaterally. Absent: respiratory distress, wheezes, rales, rhonchi - Cardiovascular Cardiovascular Exam: Present: regular rate, normal rhythm, normal heart sounds. Absent: systolic murmur, diastolic murmur, rubs, gallop - GI/Abdominal GI/Abdominal exam: Present: soft, normal bowel sounds. Absent: distended, tenderness, guarding, rebound - Extremities Exam Extremities exam: Present: normal inspection - Back Exam Back exam: Present: normal inspection - Neurological Exam Neurological exam: Present: alert, oriented X3 - Psychiatric Psychiatric exam: Present: normal affect, normal mood - Skin Skin exam: Present: warm, dry, intact, normal color. Absent: rash ED Course Vital Signs 06/22/19 14:01 Temperature 98.1 F Pulse Rate 94 H Respiratory 18 Rate Blood Pressure 147/86 O2 Sat by Pulse 99 Oximetry - Reevaluation(s) Reevaluation #1: 06/22/19 17:01 Patient's heart rate did rise proctoring 20 points during the orthostatic exam. IV was established and the patient be given a liter of normal saline and will be reassessed. ED Medical Decision Making - Lab Data Result diagrams: 06/22/19 16:46 06/22/19 16:46 - Medical Decision Making Laboratory studies did not show any electrolyte abdomen hourly or anemia. Patient was given a liter of normal saline be discharged home. Critical care attestation.: If time is entered above; I have spent that time in minutes in the direct care of this critically ill patient, excluding procedure time. ED Disposition Clinical Impression: Mild dehydration, Orthostasis Disposition: DC-01 TO HOME OR SELFCARE Is pt being admited?: No Does the pt Need Aspirin: No Condition: Stable Time of Disposition: 17:15
[2019-06-22 17:07] LABS: BUN/Creatinine Ratio 17; Blood Urea Nitrogen 10 mg/dL (7-17); Calcium 9.6 mg/dL (8.4-10.2); Hemolysis Index 6
== END 2019-06-22 19:00 | disposition home or self-care (01) ==
LOC: ED 13:45
DX: E86.0 Dehydration (principal); I10 Essential (primary) hypertension; F41.9 Anxiety disorder, unspecified; F32.9 Major depressive disorder, single episode, unspecified; J44.9 Chronic obstructive pulmonary disease, unspecified
CPT/HCPCS: 36415; 80048; 82962; 85025; 96360; 96361; 99283; J7030

== ENCOUNTER 2019-07-29 13:42 | Emergency (ER) | payer MEDICAID ==
[2019-07-29 15:35] VITALS: BP 127/64
--- NOTE | 2019-07-29 15:37 | Event Note ---
ED Screening Note Date of service: 07/29/19 Time: 15:35 ED Screening Note: 34 y o female presents with head pain x this am states itsn not a headache more like epain all over her head rates pain 03/05 This initial assessment/diagnostic orders/clinical plan/treatment(s) is/are subject to change based on patients health status, clinical progression and re- assessment by fellow clinical providers in the ED. Further treatment and workup at subsequent clinical providers discretion. Patient/guardian urged not to elope from the ED as their condition may be serious if not clinically assessed and managed. Initial orders include: acc torrey lozano,zof
== END 2019-07-29 17:47 | disposition left against medical advice (07) ==
LOC: ED 13:42
DX: R51 Headache (principal); Z53.21 Procedure and treatment not carried out due to patient leaving prior to being seen by health care provider
CPT/HCPCS: 93005; 93010

== ENCOUNTER 2019-09-11 13:35 | Emergency (ER) | payer MEDICAID ==
--- NOTE | 2019-09-11 14:33 | Emergency Department Report ---
Chief Complaint: Headache Stated Complaint: VISION ISSUE AND HEADACHE Time Seen by Provider: 09/11/19 14:27 - HPI History of Present Illness: the pt is a 34 y/o F p/w a cc of TRIPP and diplopia shortly after awakening this am. Pt denies, trauma or fever - Exam Vital Signs: 140/87, P 87, R 20, 100% r/a MSE screening note: Focused history and physical exam performed. Due to findings the following was ordered: ct head ED Disposition for MSE Condition: Stable
--- NOTE | 2019-09-11 15:35 | Cat Scan Report ---
CT head/brain wo con INDICATION: Headache and diplopia SINCE THIS AM. TECHNIQUE: Routine CT head without contrast. All CT scans at this location are performed using CT dos e reduction for ALARA by means of automated exposure control. COMPARISON: Head CT on 05/21/2019. FINDINGS: BRAIN / INTRACRANIAL CONTENTS: No acute hemorrhage, mass effect, midline shift, or hydrocephalus. No appreciable acute large territorial or lacunar infarct. No chronic infarct or focal atrophy. Normal b rain volume and ventricular/sulcal size for age. ORBITS: No significant abnormality of visualized orbits. SINUSES / MASTOIDS: No significant abnormality of visualized sinuses and mastoid air cells. ADDITIONAL FINDINGS: None. IMPRESSION: 1. No acute intracranial abnormality. Signer Name: Colton Berry MD Signed: 09/11/2019 3:30 PM Workstation Name: [id number]
[2019-09-11 18:45] LABS: Basophils % (Auto) 0.6 % (0.0-1.8); Eosinophils % (Auto) 0.4 % (0.0-4.3); Hematocrit 40.6 % (30.3-42.9); Hemoglobin 13.2 gm/dl (10.1-14.3); Lymphocytes % (Auto) 51.4 % (13.4-35.0); Mean Corpuscular HGB Conc 33 % (30-34); Mean Corpuscular Volume 85 fl (79-97); Monocytes # (Auto) 0.3 K/mm3 (0.0-0.8); Monocytes % (Auto) 6.9 % (0.0-7.3); Platelet Count 237 K/mm3 (140-440); Red Cell Distribution Width 17.2 % (13.2-15.2)
[2019-09-11 19:09] LABS: Alanine Aminotransferase 12 units/L (7-56); Albumin 4.2 g/dL (3.9-5); BUN/Creatinine Ratio 14; Blood Urea Nitrogen 7 mg/dL (7-17); Calcium 9.5 mg/dL (8.4-10.2); Hemolysis Index 4
--- NOTE | 2019-09-11 19:32 | Emergency Department Report ---
ED Headache HPI - General Chief Complaint: Headache Stated Complaint: VISION ISSUE AND HEADACHE Time Seen by Provider: 09/11/19 14:27 - History of Present Illness Initial Comments: 34-year-old -Wallis[place] female presents to the emergency room complaining of blurred vision and headache that started this morning. Patient had taken nothing for her headache. Patient denies any change of vision except blurriness. Patient did denies any nausea vomiting. Patient reports she wears glasses but does not have them on. Patient states when she put the glasses on her vision does improve some. Patient reports she has a eye appointment next month. Patient reports her headache is located in the occipital area. Quality: mild Head Injury Location: occipital Recent Head Trauma: no recent headache/trauma Associated Symptoms: denies symptoms Allergies/Adverse Reactions: Allergies amoxicillin Allergy (Verified 03/11/19 14:09) Swelling ibuprofen Allergy (Verified 05/11/19 23:03) Itching Home Medications: Ambulatory Orders Fluticasone [Flonase] 1 spray NS QDAY 14 Days #1 bottle 02/21/19 Ibuprofen [Motrin] 800 mg PO Q8HR PRN #30 tablet 02/21/19 Loratadine 10 mg PO DAILY 14 Days #14 tablet 02/21/19 Acetaminophen [Non-Aspirin Extra Strength] 500 mg PO Q6HR PRN #30 tablet 05/11/19 Famotidine [Pepcid] 20 mg PO BID #60 tablet 05/11/19 Fluticasone [Flonase] 1 spray NS QDAY #1 bottle 05/11/19 Acetaminophen [Tylenol] 1,000 mg PO Q6HR PRN #30 tablet 05/21/19 Clindamycin [Clindamycin CAP] 300 mg PO Q8H 10 Days #30 cap 05/21/19 diphenhydrAMINE [Benadryl CAP] 25 mg PO Q8HR PRN #30 capsule 05/21/19 Cyclobenzaprine [Flexeril] 10 mg PO BID PRN #25 tablet 06/01/19 ED Review of Systems ROS: Stated complaint: VISION ISSUE AND HEADACHE Other details as noted in HPI Comment: All other systems reviewed and negative ED Past Medical Hx - Past Medical History Previous Medical History?: Yes Hx Hypertension: Yes (anxiety) Hx Psychiatric Treatment: Yes (Anxiety,depression) Hx Asthma: Yes Additional medical history: OBESITY, Right Knee Pain, Sleep apnea, obese - Surgical History Past Surgical History?: Yes Additional Surgical History: C-sections X 6, Tubal Ligation, anemia - Social History Smoking Status: Never Smoker Substance Use Type: None - Medications Home Medications: Home Medications Medication Instructions Recorded Confirmed Last Taken Type Fluticasone [Flonase] 1 spray NS QDAY 14 Days #1 bottle 02/21/19 Unknown Rx Ibuprofen [Motrin] 800 mg PO Q8HR PRN #30 tablet 02/21/19 Unknown Rx Loratadine 10 mg PO DAILY 14 Days #14 tablet 02/21/19 Unknown Rx Acetaminophen [Non-Aspirin Extra 500 mg PO Q6HR PRN #30 tablet 05/11/19 Unknown Rx Strength] Famotidine [Pepcid] 20 mg PO BID #60 tablet 05/11/19 Unknown Rx Fluticasone [Flonase] 1 spray NS QDAY #1 bottle 05/11/19 Unknown Rx Acetaminophen [Tylenol] 1,000 mg PO Q6HR PRN #30 tablet 05/21/19 Unknown Rx Clindamycin [Clindamycin CAP] 300 mg PO Q8H 10 Days #30 cap 05/21/19 Unknown Rx diphenhydrAMINE [Benadryl CAP] 25 mg PO Q8HR PRN #30 capsule 05/21/19 Unknown Rx Cyclobenzaprine [Flexeril] 10 mg PO BID PRN #25 tablet 06/01/19 Unknown Rx ED Physical Exam - General Limitations: No Limitations ED Course Vital Signs 09/11/19 14:29 Temperature 98.8 F Pulse Rate 87 Respiratory 20 Rate Blood Pressure 140/87 O2 Sat by Pulse 100 Oximetry ED Medical Decision Making - Lab Data Result diagrams: 09/11/19 18:32 09/11/19 18:32 - Radiology Data Radiology results: report reviewed Patient: LUDWIG OLVERA MR#: [id number] : 1985 Acct:[id number] Age/Sex: 34 / F ADM Date: 09/11/19 Loc: ED Attending Dr: Ordering Physician: LISSETTE FIGUEROA MD Date of Service: 09/11/19 Procedure(s): CT head/brain wo con Accession Number(s): [id number] cc: LISSETTE FIGUEROA MD CT head/brain wo con INDICATION: Headache and diplopia SINCE THIS AM. TECHNIQUE: Routine CT head without contrast. All CT scans at this location are performed using CT dose reduction for ALARA by means of automated exposure control. COMPARISON: Head CT on 05/21/2019. FINDINGS: BRAIN / INTRACRANIAL CONTENTS: No acute hemorrhage, mass effect, midline shift, or hydrocephalus. No appreciable acute large territorial or lacunar infarct. No chronic infarct or focal atrophy. Normal brain volume and ventricular/sulcal size for age. ORBITS: No significant abnormality of visualized orbits. SINUSES / MASTOIDS: No significant abnormality of visualized sinuses and mastoid air cells. ADDITIONAL FINDINGS: None. IMPRESSION: 1. No acute intracranial abnormality. Signer Name: Colton Berry MD Signed: 09/11/2019 3:30 PM Workstation Name: [id number] Transcribed By: ARIANNA Dictated By: Colton Berry MD Electronically Authenticated By: Colton Berry MD Signed Date/Time: 09/11/19 1530 DD/ 1529 TD/TT: - Medical Decision Making 34-year-old -[place] female presents to the emergency room complaining of blurred vision and headache that started this morning. Patient had taken nothing for her headache. Patient denies any change of vision except blurriness. Patient did denies any nausea vomiting. Patient reports she wears glasses but does not have them on. Patient states when she put the glasses on her vision does improve some. Patient reports she has a eye appointment next month. Patient reports her headache is located in the occipital area. CT of brain is negative. Instructed patient she can take ibuprofen or Tylenol or Aleve for headache. Patient needs to call to get an early appointment for her eye exam. I encouraged patient to wear glasses as they do help with her blurry vision. Critical care attestation.: If time is entered above; I have spent that time in minutes in the direct care of this critically ill patient, excluding procedure time. ED Disposition Clinical Impression: Blurry vision, bilateral Headache Qualifiers: Headache type: unspecified Headache chronicity pattern: acute headache Intractability: intractable Qualified Code(s): R51 - Headache Is pt being admited?: No Does the pt Need Aspirin: No Condition: Stable Instructions: Acute Headache (ED) Additional Instructions: Please take Tylenol as needed for pain. Follow-up with your enterprise solutions architect sooner than your appointment. I encourage you to wear your glasses as they do help with your blurred vision. Referrals: AMY NAJERA MD [Primary Care Provider] - 3-5 Days Forms: Work/School Release Form(ED)
[2019-09-11] MEDS ORDERED: ACETAMINOPHEN 325 MG TAB PO ONE (19:38)
[2019-09-11 20:04] VITALS: BP 128/70
== END 2019-09-11 20:15 | disposition home or self-care (01) ==
LOC: ED 13:35
DX: R51 Headache (principal); H53.8 Other visual disturbances; I10 Essential (primary) hypertension; F31.89 Other bipolar disorder; F41.9 Anxiety disorder, unspecified; J45.909 Unspecified asthma, uncomplicated; Z98.51 Tubal ligation status; Z86.2 Personal history of diseases of the blood and blood-forming organs and certain disorders involving the immune mechanism; Z98.890 Other specified postprocedural states; Z79.899 Other long term (current) drug therapy; Z88.6 Allergy status to analgesic agent; Z88.1 Allergy status to other antibiotic agents
CPT/HCPCS: 36415; 70450; 80053; 85025